=== PATIENT | male | born 1935 | race Caucasian/White ===

== ENCOUNTER 2017-10-13 11:49 | Inpatient (IN) | payer MEDICARE, OTHER ==
[2017-10-13] VITALS (8 sets, daily range): BP systolic 116–162; BP diastolic 56–79; PULSE 68–97; RESP 16–18; TEMP 97.2–98.4; O2SAT 98–100
[2017-10-13 12:20] LABS: AUTOMATED NEUTROPHIL # 10.7 TH/MM3 (1.8-7.7); BASOPHIL # 0.1 TH/MM3 (0-0.2); BASOPHIL % 0.7 % (0.0-2.0); EOSINOPHIL % 0.4 % (0.0-4.0); HEMATOCRIT 41.1 % (39.0-51.0); HEMOGLOBIN 13.8 GM/DL (13.0-17.0); LYMPH % 8.7 % (9.0-44.0); LYMPHOCYTE # 1.1 TH/MM3 (1.0-4.8); MEAN CELL VOLUME 96.4 FL (80.0-100.0); MEAN CORPUSCULAR HEMOGLOBIN 32.4 PG (27.0-34.0); MEAN CORPUSCULAR HGB CONC 33.6 % (32.0-36.0); MEAN PLATELET VOLUME 7.3 FL (7.0-11.0); MONO % 6.3 % (0.0-8.0); MONOCYTE # 0.8 TH/MM3 (0-0.9); NEUT % 83.9 % (16.0-70.0); PLATELET COUNT 487 TH/MM3 (150-450); RED BLOOD COUNT 4.27 MIL/MM3 (4.50-5.90); RED CELL DISTRIBUTION WIDTH 13.8 % (11.6-17.2); WHITE BLOOD COUNT 12.7 TH/MM3 (4.0-11.0)
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
[2017-10-13] MEDS ORDERED: SODIUM CHLORID 0.9% 500 ML INJ 500 ML IV ONE ×2 (12:30→14:30)
[2017-10-13 12:50] LABS: PROTHROMBIN TIME - PATIENT 10.2 SEC (9.8-11.6)
--- NOTE | 2017-10-13 12:58 | RADRPT ---
EXAM DATE/TIME: 10/13/2017 12:48 [facility] COMPARISON: No previous studies available for comparison. INDICATIONS : Syncopal episode. MEDICAL HISTORY : None. SURGICAL HISTORY : None. ENCOUNTER: Initial ACUITY: 1 day PAIN SCORE: Non-responsive. LOCATION: chest FINDINGS: There is a questionable area of increased density in the right upper lung area. This may just be over lapping of the bony structures. However, there no prior studies for comparison. The rest the lungs ar e grossly clear. There are no pleural effusions or pulmonary edema. The heart size is within normal l imits. CONCLUSION: 1. Questionable increased density in the right upper lung area. Recommend a 2 view PA and lateral rubén st x-ray for further evaluation. Robin Young MD on October 13, 2017 at 12:54 Board Certified Radiologist. This report was verified electronically.
[2017-10-13 13:06] LABS: ALBUMIN 2.6 GM/DL (3.4-5.0); AST (GOT) 22 U/L (15-37); BICARBONATE 30.6 MEQ/L (21.0-32.0); BLOOD UREA NITROGEN 30 MG/DL (7-18); CALCIUM 10.1 MG/DL (8.5-10.1); CHLORIDE 101 MEQ/L (98-107); CREATININE 1.44 MG/DL (0.60-1.30); GLOMERULAR FILTRATION RATE 47 ML/MIN (>89); GLUCOSE,RANDOM 93 MG/DL (74-106); SODIUM (NA) 137 MEQ/L (136-145)
[2017-10-13 13:10] LABS: ALKALINE PHOSPHATASE 72 U/L (45-117); ALT (GPT) 40 U/L (12-78); TOTAL BILIRUBIN ADULT 0.6 MG/DL (0.2-1.0); TOTAL PROTEIN 7.7 GM/DL (6.4-8.2)
[2017-10-13 13:10] LABS: TROPONIN I LESS THAN 0.02 NG/ML (0.02-0.05)
[2017-10-13 13:45] LABS: BACTERIA, URINE MANY /hpf; BILIRUBIN, URINE NEG (NEG); BLOOD, URINE SMALL (NEG); GLUCOSE,URINE NEG (NEG); HYALINE CAST, URINE 2 /lpf (RARE); KETONE, URINE NEG (NEG); NITRITE,URINE NEG (NEG); PH, URINE 6.5 (5.0-8.5); URINE COLOR YELLOW (YELLW/STRAW); URINE LEUKOCYTE ESTERASE LARGE (NEG); WHITE BLOOD CELL CLUMPS MANY
[2017-10-13] MEDS ORDERED: IOHEXOL 350 MG/ML 10 ML VIAL (for RAD DIAG) IVCONTRAST ONE (14:10)
--- NOTE | 2017-10-13 14:28 | RADRPT ---
EXAM DATE/TIME: 10/13/2017 13:53 [facility] COMPARISON: No previous studies available for comparison. INDICATIONS : Altered mental status. RADIATION DOSE: 56.35 CTDIvol (mGy) MEDICAL HISTORY : Non-responsive. SURGICAL HISTORY : Non-responsive. ENCOUNTER: Initial ACUITY: 1 day PAIN SCALE: Non-responsive LOCATION: Bilateral head TECHNIQUE: Multiple contiguous axial images were obtained of the head. Using automated exposure control and adj ustment of the mA and/or kV according to patient size, radiation dose was kept as low as reasonably a chievable to obtain optimal diagnostic quality images. DICOM format image data is available electro nically for review and comparison. FINDINGS: CEREBRUM: Moderate diffuse cerebral volume loss. The ventricles are normal for age. No evidence of midline radha ft, mass lesion, hemorrhage or acute infarction. No extra-axial fluid collections are seen. POSTERIOR FOSSA: The cerebellum and brainstem are intact. The 4th ventricle is midline. The cerebellopontine angle i s unremarkable. EXTRACRANIAL: The visualized portion of the orbits is intact. Chronic left frontal sinus changes. Minimal mucoperio steal thickening in the right maxillary sinus. Small metallic fragments in the cheek regions and nasa l septum. SKULL: The calvaria is intact. No evidence of skull fracture. CONCLUSION: 1. No acute intra-animality. 2. Chronic appearing left frontal sinus and mild right maxillary mucosal sinus disease. 3. Small metallic fragments in the facial soft tissues and nasal septum. Boris Roque MD on October 13, 2017 at 14:23 Board Certified Radiologist. This report was verified electronically.
[2017-10-13] MEDS ORDERED: cefTRIAXone INJ 1,000 MG in SODIUM CHLORIDE 0.9% INJ 100 ML IV ONE (14:30)
--- NOTE | 2017-10-13 14:36 | RADRPT ---
EXAM DATE/TIME: 10/13/2017 13:57 [facility] COMPARISON: No previous studies available for comparison. INDICATIONS : Diffuse abdomen pain today. IV CONTRAST: 96 cc Omnipaque 350 (iohexol) IV ORAL CONTRAST: No oral contrast ingested. RADIATION DOSE: 6.97 CTDIvol (mGy) MEDICAL HISTORY : Non-responsive. SURGICAL HISTORY : Non-responsive. ENCOUNTER: Initial ACUITY: 1 day PAIN SCALE: Non-responsive LOCATION: Bilateral abdomen TECHNIQUE: Volumetric scanning of the abdomen and pelvis was performed. Using automated exposure control and ad justment of the mA and/or kV according to patient size, radiation dose was kept as low as reasonably achievable to obtain optimal diagnostic quality images. DICOM format image data is available electro nically for review and comparison. FINDINGS: LOWER LUNGS: The visualized lower lungs are clear. LIVER: Homogeneous density without lesion. There is no dilation of the biliary tree. No calcified gallston es. SPLEEN: Normal size without lesion. PANCREAS: Within normal limits. KIDNEYS: Diffuse cortical thinning in the left kidney particularly in the inferior pole. Small vascular calcif ications. No radiopaque renal calculi. Mild left hydroureteronephrosis. ADRENAL GLANDS: Within normal limits. VASCULAR: Fusiform infrarenal aortic aneurysm measuring up to 2.9 cm in maximum axial dimensions containing sma ll amount of neural thrombus anteriorly. BOWEL/MESENTERY: Mild to moderate sigmoid diverticulosis. There is a 2.8 x 2.9 x 3.0 cm tubular cystic density structu re near the cecum which may reflect a dilated appendix. Bowel otherwise appears grossly unremarkable. ABDOMINAL WALL: Within normal limits. RETROPERITONEUM: There is no lymphadenopathy. BLADDER: Abnormal. There is a an enhancing bladder mass posteriorly measuring 3.5 x 2.7 cm with an adjacent de nsely calcified bladder calculus measuring 1.5 x 1.3 cm. REPRODUCTIVE: Prominent prostate gland. INGUINAL: There is no lymphadenopathy or hernia. MUSCULOSKELETAL: Degenerative spondylosis of the lumbar spine without acute fracture or focal lesion. CONCLUSION: 1. Enhancing posterior bladder mass measuring 2.5 x 2.7 cm consistent with bladder carcinoma. 2. Adjacent densely calcified bladder calculus measuring 1.5 x 1.3 cm. 3. Chronic appearing mild left hydronephrosis with chronic scarring of the left kidney particularly n ear the inferior pole. 4. Tubular cystic density structure measuring up to 3 cm adjacent the cecum likely reflecting a dilat ed appendix. No significant stranding or inflammatory change. 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 5. Infrarenal aortic aneurysm measuring up to 2.9 cm containing small amount of anterior mural thromb us. Boris Roque MD on October 13, 2017 at 14:27 Board Certified Radiologist. This report was verified electronically.
[2017-10-13] MEDS ORDERED: SODIUM CHLORIDE 0.9% FLUSH 10 ML FLUSH IV FLUSH PRN (15:30)
[2017-10-13] MEDS ORDERED: BISACODYL 10 MG SUPP RECTAL PRN (15:30)
[2017-10-13] MEDS ORDERED: LACTULOSE SYRUP 20 GM/30 ML CUP PO PRN (15:30)
[2017-10-13] MEDS ORDERED: SENNOSIDES 8.6 MG TAB PO PRN (15:30)
[2017-10-13] MEDS ORDERED: NALOXONE HCL 0.4 MG/ML AMP IV PUSH PRN (15:30)
[2017-10-13] MEDS ORDERED: MAGNESIUM HYDROXIDE SUSP 30 ML CUP PO PRN (15:30)
[2017-10-13] MEDS ORDERED: ACETAMINOPHEN 325 MG TAB PO PRN (15:30)
[2017-10-13] MEDS ORDERED: cloNIDine HCL 0.1 MG TAB PO PRN (16:15)
--- NOTE | 2017-10-13 16:28 | HHI.HP ---
HPI [facility] Primary Care Physician No Primary Care Physician Admission Diagnosis AMS, bladder mass, weakness, UTI Diagnoses: Chief Complaint: Richey acted, disorientation Travel History International Travel<30 Days: No Contact w/Intl Traveler <30 Da: No Traveled to Known Affected Are: No History of Present Illness This is an 82-year-old male with no known comorbidities, possible COPD, was Richey acted after patient's neighbor/friend called the police department because patient was found to be covered in feces. Per patient's friend, the patient has been declining in the last few weeks, has been having loose stools, coughing, nonproductive and has been more forgetful. He does not know of any medical problems, he is trying to contact the patient's daughter who is incommunicado. Closest family is in [place]. Patient denies any fever, chills, chest pain, shortness of breath, urinary symptoms, abdominal pain or diarrhea. Very poor historian. Review of Systems ROS Limitations: Poor Historian Past Family Social History Past Medical History ? COPD per EMR Cannot be obtained, poor historian Past Surgical History Cannot be obtained, Reported Medications Per friend, allegedly on medication for prostate enlargement but patient is not taking Allergies: Coded Allergies: No Known Drug Allergies (Verified Allergy, Unknown, 10/13/17) Unable to Assess (Verified Allergy, Unknown, 10/13/17) PT STATES HE DOES NOT KNOW Family History Cannot be obtained, per patient, he cannot remember. 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 Social History Allegedly smokes infrequently. Physical Exam Vital Signs Vital Signs Date Time Temp Pulse Resp B/P (MAP) Pulse Ox O2 Delivery O2 Flow Rate FiO2 10/13/17 14:00 82 16 141/64 (89) 99 Room Air 10/13/17 13:00 97 18 116/56 (76) 100 Room Air 10/13/17 11:58 98.4 80 18 162/79 (106) 100 Room Air 10/13/17 11:56 98.4 Physical Exam GENERAL: Not in acute distress, thin patient. HEAD: Atraumatic. Normocephalic. EYES: PERRL, full EOMs, no jaundice, nonicteric, pink conjunctivae without injection, moist mucosa ENT: Nose without bleeding, purulent drainage. Airway patent. NECK: Trachea midline, no mass, no obvious thyromegaly. CARDIOVASCULAR: Regular rate and rhythm without murmurs, gallops, or rubs. RESPIRATORY: Clear to auscultation with normal respiratory effort. Decreased breath sounds symmetrically, occasional rhonchi. GASTROINTESTINAL: Abdomen soft, normal bowel sounds, non-tender, nondistended. MARCIO and exam deferred. MUSCULOSKELETAL: Extremities without clubbing, cyanosis, or edema. NEUROLOGICAL: Awake, alert, oriented to person, place, but not to year. Patient can remember his daughter and friends named. No obvious cranial nerve deficits. Moves all 4 extremities, muscle strength testing 5 over 5. Flat affect. Laboratory Laboratory Tests Test 10/13/17 12:05 10/13/17 12:15 10/13/17 12:25 10/13/17 12:40 White Blood Count 12.7 Red Blood Count 4.27 Hemoglobin 13.8 Hematocrit 41.1 Mean Corpuscular Volume 96.4 Mean Corpuscular Hemoglobin 32.4 Mean Corpuscular Hemoglobin Concent 33.6 Red Cell Distribution Width 13.8 Platelet Count 487 Mean Platelet Volume 7.3 Neutrophils (%) (Auto) 83.9 Lymphocytes (%) (Auto) 8.7 Monocytes (%) (Auto) 6.3 Eosinophils (%) (Auto) 0.4 Basophils (%) (Auto) 0.7 Neutrophils # (Auto) 10.7 Lymphocytes # (Auto) 1.1 Monocytes # (Auto) 0.8 Eosinophils # (Auto) 0.0 Basophils # (Auto) 0.1 CBC Comment DIFF FINAL Differential Comment Blood Urea Nitrogen 30 Creatinine 1.44 Random Glucose 93 Total Protein 7.7 Albumin 2.6 Calcium Level 10.1 Alkaline Phosphatase 72 Aspartate Amino Transf (AST/SGOT) 22 Alanine Aminotransferase (ALT/SGPT) 40 Total Bilirubin 0.6 Sodium Level 137 Potassium Level 4.9 Chloride Level 101 Carbon Dioxide Level 30.6 Anion Gap 5 Estimat Glomerular Filtration Rate 47 Lactic Acid Level 1.2 Prothrombin Time 10.2 Prothromb Time International Ratio 1.0 Activated Partial Thromboplast Time 28.9 Ammonia 26 Total Creatine Kinase 15 Troponin I LESS THAN 0.02 Thyroid Stimulating Hormone 3rd Gen 1.260 Urine Color YELLOW Urine Turbidity HAZY Urine pH 6.5 Urine Specific [place] 1.011 Urine Protein TRACE Urine Glucose (UA) NEG Urine Ketones NEG Urine Occult Blood SMALL Urine Nitrite NEG Urine Bilirubin NEG Urine Urobilinogen LESS THAN 2.0 Urine Leukocyte Esterase LARGE Urine RBC 5 Urine WBC 135 Urine WBC Clumps MANY Urine Bacteria MANY Urine Hyaline Casts 2 Microscopic Urinalysis Comment CATH-CULTURE IND Urine Opiates Screen NEG Urine Barbiturates Screen NEG Urine Amphetamines Screen NEG Urine Benzodiazepines Screen NEG Urine Cocaine Screen NEG Urine Cannabinoids Screen NEG Date/Time Source Procedure Growth Status 10/13/17 12:40 Urine Catheterized Urine Urine Culture Pending Received Result Diagram: 10/13/17 1205 10/13/17 1205 Imaging Last Impressions Chest X-Ray 10/13/17 1214 Signed Impressions: Service Date/Time: Friday, October 13, 2017 12:48 - CONCLUSION: 1. Questionable increased density in the right upper lung area. Recommend a 2 view PA and lateral chest x-ray for further evaluation. Robin Young MD Capjimii VTE Risk Assessment Caprini VTE Risk Assessment: Mod/High Risk (score >= 2) Caprini Risk Assessment Model Point Value = 1 Point Value = 2 Point Value = 3 Point Value = 5 Age 41-60 Minor surgery BMI > 25 kg/m2 Swollen legs Varicose veins or History of unexplained or recurrent spontaneous Oral contraceptives or hormone replacement Sepsis (< 1 month) Serious lung disease, including pneumonia (< 1 month) Abnormal pulmonary function Acute myocardial infarction Congestive heart failure (< 1 month) History of inflammatory bowel disease Medical patient at bed rest Age 61-74 Arthroscopic surgery Major open surgery (> 45 min) Laparoscopic surgery (> 45 min) Malignancy Confined to bed (> 72 hours) Immobilizing plaster cast Central venous access Age >= 75 History of VTE Family history of VTE Factor V Leiden Prothrombin [id number] Lupus anticoagulant Anticardiolipin antibodies Elevated serum homocysteine Heparin-induced thrombocytopenia Other congenital or acquired thrombophilia Stroke (< 1 month) Elective arthroplasty Hip, pelvis, or leg fracture Acute spinal cord injury (< 1 month) Prophylaxis Regimen Total Risk Factor Score Risk Level Prophylaxis Regimen 0-1 Low Early ambulation 2 Moderate Order ONE of the following: *Sequential Compression Device (SCD) *Heparin 5000 units SQ BID 3-4 Higher Order ONE of the following medications: *Heparin 5000 units SQ TID *Enoxaparin/Lovenox 40 mg SQ daily (WT < 150 kg, CrCl > 30 mL/min) *Enoxaparin/Lovenox 30 mg SQ daily (WT < 150 kg, CrCl > 10-29 mL/min) *Enoxaparin/Lovenox 30 mg SQ BID (WT < 150 kg, CrCl > 30 mL/min) AND/OR *Sequential Compression Device (SCD) 5 or more Highest Order ONE of the following medications: *Heparin 5000 units SQ TID (Preferred with Epidurals) *Enoxaparin/Lovenox 40 mg SQ daily (WT < 150 kg, CrCl > 30 mL/min) *Enoxaparin/Lovenox 30 mg SQ daily (WT < 150 kg, CrCl > 10-29 mL/min) *Enoxaparin/Lovenox 30 mg SQ BID (WT < 150 kg, CrCl > 30 mL/min) AND *Sequential Compression Device (SCD) Assessment and Plan Problem List: (1) UTI (urinary tract infection) ICD Code: N39.0 - Urinary tract infection, site not specified Status: Acute (2) Bladder mass ICD Code: N32.89 - Other specified disorders of bladder Status: Acute Assessment and Plan This is an 82-year-old male with no known comorbidities but very poor historian , presenting as a Richey act, found to have possible UTI and bladder mass Altered mental status-could be beginning dementia, also could be toxic metabolic encephalopathy from UTI, monitor. Urinary tract infection-urinalysis suspicious for infection, (+) leukocytosis, follow-up urine culture, and start ceftriaxone, recheck CBC tomorrow. Bladder mass- CT scan of the abdomen/pelvis reviewed, bladder mass 2.5 x 2.7 cm , suspicious for bladder cancer, patient is a retired colonel, there is also evidence of mild left hydronephrosis, consult urology Infrarenal aortic aneurysm- 2.9 cm, with small amount of anterior mural thrombus, consult vascular surgery Hypertension-start Norvasc, clonidine as needed Acute versus chronic kidney disease- ? , No previous labs to compare with, start IVF. Urinalysis only has trace proteinuria. Follow BMP. Diarrhea-check C. difficile, ova and parasites. IVF as above, doubt C diff DVT prophylaxis: Heparin Case management consult, will likely need SNF for long-term care placement. Discussed Condition With Patient's friend Michela Physician Certification 2 Midnight Certification Type: Admission for Inpatient Services Order for Inpatient Services The services are ordered in accordance with Medicare regulations or non- Medicare payer requirements, as applicable. In the case of services not specified as inpatient-only, they are appropriately provided as inpatient services in accordance with the 2-midnight benchmark. Estimated LOS (days): 3 days is the estimated time the patient will need to remain in the hospital, assuming treatment plan goals are met and no additional complications. Post-Hospital Plan: SNF Problem Qualifiers (1) UTI (urinary tract infection): Qualified Codes: N30.00 - Acute cystitis without hematuria Augustin Goss MD Oct 13, 2017 16:27
--- NOTE | 2017-10-13 16:43 | PD ---
Data Data Last Documented VS Vital Signs Date Time Temp Pulse Resp B/P (MAP) Pulse Ox O2 Delivery O2 Flow Rate FiO2 10/13/17 14:00 82 16 141/64 (89) 99 Room Air 10/13/17 11:58 98.4 Orders Orders Complete Blood Count With Diff (10/13/17 12:02) Comprehensive Metabolic Panel (10/13/17 12:02) Urinalysis - C+S If Indicated (10/13/17 12:02) Lactic Acid (10/13/17 12:02) Ct Brain W/O Iv Contrast(Rout) (10/13/17 ) Electrocardiogram (10/13/17 12:14) Ammonia (10/13/17 12:14) Creatine Kinase (Cpk) (10/13/17 12:14) Prothrombin Time / Inr (Pt) (10/13/17 12:14) Act Partial Throm Time (Ptt) (10/13/17 12:14) Troponin I (10/13/17 12:14) Thyroid Stimulating Hormone (10/13/17 12:14) Chest, Single Ap (10/13/17 12:14) Blood Glucose (10/13/17 12:14) Ecg Monitoring (10/13/17 12:14) Iv Access Insert/Monitor (10/13/17 12:14) Cath For Specimen (10/13/17 12:14) Oximetry (10/13/17 12:14) Drug Screen, Random Urine (10/13/17 12:14) Sodium Chlorid 0.9% 500 Ml Inj (Ns 500 M (10/13/17 12:30) Ct Abd/Pel W Iv Contrast(Rout) (10/13/17 ) Urine Culture (10/13/17 12:40) Iohexol 350 Inj (Omnipaque 350 Inj) (10/13/17 14:10) Sodium Chlorid 0.9% 500 Ml Inj (Ns 500 M (10/13/17 14:30) Ceftriaxone Inj (Rocephin Inj) (10/13/17 14:30) Admit Order (Ed Use Only) (10/13/17 15:21) Admit To Inpatient (10/13/17 ) Vital Signs (Adult) Q4H (10/13/17 15:19) Activity Bed Rest (10/13/17 15:19) Intake + Output ROGELIO.QSHIFT (10/13/17 15:19) Diet Heart Healthy (10/13/17 Dinner) Sodium Chlor 0.9% 1000 Ml Inj (Ns 1000 M (10/13/17 15:19) Sodium Chloride 0.9% Flush (Ns Flush) (10/13/17 15:30) Sodium Chloride 0.9% Flush (Ns Flush) (10/13/17 21:00) Acetaminophen (Tylenol) (10/13/17 15:30) Basic Metabolic Panel (Bmp) (10/14/17 06:00) Complete Blood Count With Diff (10/14/17 06:00) Creatine Kinase (Cpk) (10/13/17 15:19) Hepatic Functional Panel (10/14/17 06:00) Resp Oxygen Donald C Titrat 1-4 L (10/13/17 ) Pt Request For Service (10/13/17 15:19) Heparin Inj (Heparin Inj) (10/13/17 16:00) Naloxone Inj (Narcan Inj) (10/13/17 15:30) Docusate Sodium-Senna (Fauzia-Colace) (10/13/17 21:00) Magnesium Hydroxide Liq (Milk Of Magnesi (10/13/17 15:30) Sennosides (Senokot) (10/13/17 15:30) Bisacodyl Supp (Dulcolax Supp) (10/13/17 15:30) Lactulose Liq (Lactulose Liq) (10/13/17 15:30) Labs Laboratory Tests Test 10/13/17 12:05 10/13/17 12:15 10/13/17 12:25 10/13/17 12:40 White Blood Count 12.7 TH/MM3 Red Blood Count 4.27 MIL/MM3 Hemoglobin 13.8 GM/DL Hematocrit 41.1 % Mean Corpuscular Volume 96.4 FL Mean Corpuscular Hemoglobin 32.4 PG Mean Corpuscular Hemoglobin Concent 33.6 % Red Cell Distribution Width 13.8 % Platelet Count 487 TH/MM3 Mean Platelet Volume 7.3 FL Neutrophils (%) (Auto) 83.9 % Lymphocytes (%) (Auto) 8.7 % Monocytes (%) (Auto) 6.3 % Eosinophils (%) (Auto) 0.4 % Basophils (%) (Auto) 0.7 % Neutrophils # (Auto) 10.7 TH/MM3 Lymphocytes # (Auto) 1.1 TH/MM3 Monocytes # (Auto) 0.8 TH/MM3 Eosinophils # (Auto) 0.0 TH/MM3 Basophils # (Auto) 0.1 TH/MM3 CBC Comment DIFF FINAL Differential Comment Blood Urea Nitrogen 30 MG/DL Creatinine 1.44 MG/DL Random Glucose 93 MG/DL Total Protein 7.7 GM/DL Albumin 2.6 GM/DL Calcium Level 10.1 MG/DL Alkaline Phosphatase 72 U/L Aspartate Amino Transf (AST/SGOT) 22 U/L Alanine Aminotransferase (ALT/SGPT) 40 U/L Total Bilirubin 0.6 MG/DL Sodium Level 137 MEQ/L Potassium Level 4.9 MEQ/L Chloride Level 101 MEQ/L Carbon Dioxide Level 30.6 MEQ/L Anion Gap 5 MEQ/L Estimat Glomerular Filtration Rate 47 ML/MIN Lactic Acid Level 1.2 mmol/L Prothrombin Time 10.2 SEC Prothromb Time International Ratio 1.0 RATIO Activated Partial Thromboplast Time 28.9 SEC Ammonia 26 MCMOL/L Total Creatine Kinase 15 U/L Troponin I LESS THAN 0.02 NG/ML Thyroid Stimulating Hormone 3rd Gen 1.260 uIU/ML Urine Color YELLOW Urine Turbidity HAZY Urine pH 6.5 Urine Specific [place] 1.011 Urine Protein TRACE mg/dL Urine Glucose (UA) NEG mg/dL Urine Ketones NEG mg/dL Urine Occult Blood SMALL Urine Nitrite NEG Urine Bilirubin NEG Urine Urobilinogen LESS THAN 2.0 MG/DL Urine Leukocyte Esterase LARGE Urine RBC 5 /hpf Urine WBC 135 /hpf Urine WBC Clumps MANY Urine Bacteria MANY /hpf Urine Hyaline Casts 2 /lpf Microscopic Urinalysis Comment CATH-CULTURE IND Urine Opiates Screen NEG Urine Barbiturates Screen NEG Urine Amphetamines Screen NEG Urine Benzodiazepines Screen NEG Urine Cocaine Screen NEG Urine Cannabinoids Screen NEG MDM Medical Record Reviewed: Yes Supervised Visit with HELEN: Yes Narrative Course Please refer to mid-level note. CBC & BMP Diagram 10/13/17 12:05 Total Protein 7.7, Albumin 2.6 L, Calcium Level 10.1, Alkaline Phosphatase 72, Aspartate Amino Transf (AST/SGOT) 22, Alanine Aminotransferase (ALT/SGPT) 40, Total Bilirubin 0.6 Patient will be admitted for IV antibiotics and ongoing monitoring. Please refer to the mid-level note. I saw and evaluated the patient at the bedside and agree with the plan. Diagnosis Primary Impression: UTI (urinary tract infection) Qualified Codes: N30.00 - Acute cystitis without hematuria Additional Impressions: Aortic aneurysm Qualified Codes: I71.4 - Abdominal aortic aneurysm, without rupture Weakness Bladder mass Admitting Information Admitting Physician Requests: Admit Scripts Unable to Obtain Active Prescriptions or Reported Meds Nic Auguste MD Oct 13, 2017 16:43
[2017-10-13] MEDS: amLODIPine BESYLATE 5 MG TAB PO SCH (17:16)
[2017-10-13] MEDS: HEPARIN SODIUM - SQ 10,000 UNITS/ML VIAL SQ SCH (17:16)
[2017-10-13] MEDS: SODIUM CHLOR 0.9% 1000 ML INJ 1,000 ML IV SCH (17:17)
[2017-10-13] MEDS ORDERED: LORazepam 2 MG/ML VIAL IV PUSH ONE (20:00)
[2017-10-13] MEDS: SODIUM CHLORIDE 0.9% FLUSH 10 ML FLUSH IV FLUSH SCH (20:04)
[2017-10-13] MEDS: DOCUSATE SODIUM 50 MG/SENNA 8.6 MG TAB PO SCH (20:04)
--- NOTE | 2017-10-13 20:36 | RADRPT ---
EXAM DATE/TIME: 10/13/2017 20:23 [facility] COMPARISON: CHEST SINGLE AP, October 13, 2017, 12:48. INDICATIONS : Follow up abnormal chest x-ray. RADIATION DOSE: 9.23 CTDIvol (mGy) MEDICAL HISTORY : None SURGICAL HISTORY : None. ENCOUNTER: Subsequent ACUITY: 1 day PAIN SCALE: Non-responsive LOCATION: chest TECHNIQUE: Volumetric scanning of the chest was performed. Using automated exposure control and adjustment of t he mA and/or kV according to patient size, radiation dose was kept as low as reasonably achievable to obtain optimal diagnostic quality images. DICOM format image data is available electronically for r eview and comparison. Follow-up recommendations for detected pulmonary nodules are based at a minimum on nodule size and pa tient risk factors according to Fleischner Society Guidelines. FINDINGS: LUNGS: There is mild centrilobular emphysema. Mild symmetric biapical scar is present. No effusion, consolid ation, or pneumothorax is present. No concerning pulmonary nodule is seen. PLEURAE: No pleural effusion. There is mild pleural thickening in the posterior mid right hemithorax. MEDIASTINUM: The heart and great vessels demonstrate no acute abnormality. There is severe atherosclerotic diseas e of the aorta and coronary artery calcification. There is no mediastinal or hilar lymphadenopathy. AXILLAE: Within normal limits. No lymphadenopathy. MUSCULOSKELETAL: Degenerative changes of the thoracic spine. No lytic or blastic lesion is seen. MISCELLANEOUS: A small hiatal hernia is present. CONCLUSION: 1. No acute pulmonary abnormality is identified. There is mild centrilobular emphysema with mild biap ical scar. No concerning pulmonary nodule is seen. 2. Severe atherosclerotic disease. Bryan Hobson MD on October 13, 2017 at 20:31 Board Certified Radiologist. This report was verified electronically.
[2017-10-14] VITALS (13 sets, daily range): BP systolic 108–138; BP diastolic 55–88; PULSE 69–100; RESP 18–19; TEMP 97.2–98.9; O2SAT 94–100
[2017-10-14] MEDS: SODIUM CHLOR 0.9% 1000 ML INJ 1,000 ML IV SCH ×3 (02:05→22:53)
[2017-10-14] MEDS: HEPARIN SODIUM - SQ 10,000 UNITS/ML VIAL SQ SCH ×2 (04:28→14:51)
[2017-10-14] MEDS: DOCUSATE SODIUM 50 MG/SENNA 8.6 MG TAB PO SCH ×2 (08:06→20:19)
[2017-10-14] MEDS: amLODIPine BESYLATE 5 MG TAB PO SCH (08:07)
[2017-10-14] MEDS: SODIUM CHLORIDE 0.9% FLUSH 10 ML FLUSH IV FLUSH SCH ×2 (08:08→20:19)
--- NOTE | 2017-10-14 09:17 | HHI.PR ---
Subjective Remarks Patient complains of being cold. He states he needs to urinate. States he is planning on the right eye but if he is on the left. Not interested in eating breakfast. Pleasantly confused. Does not speak much to me Objective Vitals Vital Signs Date Time Temp Pulse Resp B/P (MAP) Pulse Ox O2 Delivery O2 Flow Rate FiO2 10/14/17 07:37 98 10/14/17 07:35 98.2 89 18 136/74 (94) 94 10/14/17 04:54 97.2 100 18 115/57 (76) 100 10/14/17 00:58 97.5 92 19 138/60 (86) 99 10/14/17 00:04 73 10/13/17 20:59 98.1 77 18 132/58 (82) 100 10/13/17 20:00 68 10/13/17 18:26 89 10/13/17 17:22 97.2 82 18 127/60 (82) 98 10/13/17 16:59 10/13/17 14:00 82 16 141/64 (89) 99 Room Air 10/13/17 13:00 97 18 116/56 (76) 100 Room Air 10/13/17 11:58 98.4 80 18 162/79 (106) 100 Room Air 10/13/17 11:56 98.4 I/O 10/13/17 10/13/17 10/13/17 10/14/17 10/14/17 10/14/17 07:00 15:00 23:00 07:00 15:00 23:00 Intake Total 500 ml 600 ml 995 ml Balance 500 ml 600 ml 995 ml Intake IV Total 500 ml 600 ml 995 ml # Voids 1 1 1 # Bowel Movements 1 Result Diagram: 10/13/17 1205 10/13/17 1205 Imaging Last Impressions Chest X-Ray 10/13/17 1214 Signed Impressions: Service Date/Time: Friday, October 13, 2017 12:48 - CONCLUSION: 1. Questionable increased density in the right upper lung area. Recommend a 2 view PA and lateral chest x-ray for further evaluation. Robin Young MD Head CT 10/13/17 0000 Signed Impressions: Service Date/Time: Friday, October 13, 2017 13:53 - CONCLUSION: 1. No acute intra-animality. 2. Chronic appearing left frontal sinus and mild right maxillary mucosal sinus disease. 3. Small metallic fragments in the facial soft tissues and nasal septum. Boris Roque MD Chest CT 10/13/17 0000 Signed Impressions: Service Date/Time: Friday, October 13, 2017 20:23 - CONCLUSION: 1. No acute pulmonary abnormality is identified. There is mild centrilobular emphysema with mild biapical scar. No concerning pulmonary nodule is seen. 2. Severe atherosclerotic disease. Bryan Hobson MD Abdomen/Pelvis CT 10/13/17 0000 Signed Impressions: Service Date/Time: Friday, October 13, 2017 13:57 - CONCLUSION: 1. Enhancing posterior bladder mass measuring 2.5 x 2.7 cm consistent with bladder carcinoma. 2. Adjacent densely calcified bladder calculus measuring 1.5 x 1.3 cm. 3. Chronic appearing mild left hydronephrosis with chronic scarring of the left kidney particularly near the inferior pole. 4. Tubular cystic density structure measuring up to 3 cm adjacent the cecum likely reflecting a dilated appendix. No significant stranding or inflammatory change. 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 5. Infrarenal aortic aneurysm measuring up to 2.9 cm containing small amount of anterior mural thrombus. Boris Roque MD Objective Remarks GENERAL: Laying in bed. Thin patient. HEAD: Atraumatic. Normocephalic. EYES: some dry secretions noted on the right eyelids, right w no injection. No secretion note on the left. ENT: Airway patent. Mucous membranes do appear dry NECK: Trachea midline CARDIOVASCULAR: Regular rate and rhythm without murmurs RESPIRATORY: Clear to auscultation with normal respiratory effort. Decreased breath sounds symmetrically GASTROINTESTINAL: Abdomen soft, normal bowel sounds, some discomfort to deep palpation in the suprapubic area MUSCULOSKELETAL: Extremities without edema. moves around in bed, trying to find a comfortable spot and trying to pull covers on himself. NEUROLOGICAL: Moves all 4 extremities, flat affect. answers w yes or no but at times mumbles he is cold A/P Problem List: (1) UTI (urinary tract infection) ICD Code: N39.0 - Urinary tract infection, site not specified Status: Acute (2) Bladder mass ICD Code: N32.89 - Other specified disorders of bladder Status: Acute Assessment and Plan This is an 82-year-old male with no known comorbidities but very poor historian , presenting as a Richey act, found to have possible UTI and bladder mass and aortic aneurysm Altered mental status-could be beginning dementia, also could be toxic metabolic encephalopathy from UTI, monitor. 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 Infrarenal aortic aneurysm- 2.9 cm, with small amount of anterior mural thrombus, vascular surgery has been consult Hypertension-on Norvasc, clonidine as needed Acute versus chronic kidney disease- ? , No previous labs to compare with, continue IVF. Urinalysis only has trace proteinuria. Follow BMP. Diarrhea-check C. difficile neg, ova and parasites pending. DVT prophylaxis: Heparin Case management consult, will likely need SNF for long-term care placement. Patient was admitted under Richey act, I have consulted psychiatry for further recommendations. From the ER documentation, patient's POA and was yesterday. I have consulted palliative care for assistance with goals of care. Discharge Planning Pt under backer Act and psych consult in place Awaiting recs from urology and [facility] sx Palliative care consult placed for assistance w goals of care. Problem Qualifiers (1) UTI (urinary tract infection): Qualified Codes: N30.00 - Acute cystitis without hematuria Laura Arevalo MD Oct 14, 2017 09:17
[2017-10-14 10:50] LABS: AUTOMATED NEUTROPHIL # 9.6 TH/MM3 (1.8-7.7); BASOPHIL # 0.1 TH/MM3 (0-0.2); BASOPHIL % 0.6 % (0.0-2.0); EOSINOPHIL % 0.3 % (0.0-4.0); HEMATOCRIT 40.3 % (39.0-51.0); HEMOGLOBIN 13.4 GM/DL (13.0-17.0); LYMPH % 10.7 % (9.0-44.0); LYMPHOCYTE # 1.2 TH/MM3 (1.0-4.8); MEAN CELL VOLUME 96.9 FL (80.0-100.0); MEAN CORPUSCULAR HEMOGLOBIN 32.1 PG (27.0-34.0); MEAN CORPUSCULAR HGB CONC 33.1 % (32.0-36.0); MEAN PLATELET VOLUME 7.9 FL (7.0-11.0); MONO % 3.7 % (0.0-8.0); MONOCYTE # 0.4 TH/MM3 (0-0.9); NEUT % 84.7 % (16.0-70.0); PLATELET COUNT 484 TH/MM3 (150-450); RED BLOOD COUNT 4.16 MIL/MM3 (4.50-5.90); RED CELL DISTRIBUTION WIDTH 13.8 % (11.6-17.2); WHITE BLOOD COUNT 11.4 TH/MM3 (4.0-11.0)
[2017-10-14 11:25] LABS: ALBUMIN 2.5 GM/DL (3.4-5.0); BICARBONATE 27.5 MEQ/L (21.0-32.0); CALCIUM 9.7 MG/DL (8.5-10.1); CREATININE 1.37 MG/DL (0.60-1.30); DIRECT BILIRUBIN ADULT 0.1 MG/DL (0.0-0.2); INDIRECT BILIRUBIN 0.4 MG/DL (0.0-0.8); TOTAL BILIRUBIN ADULT 0.5 MG/DL (0.2-1.0)
--- NOTE | 2017-10-14 11:35 | PD.CONS ---
[facility] Service Urology Consult Requested By Dr. Goss Reason for Consult Rule out bladder mass Primary Care Physician No Primary Care Physician Diagnosis: (1) UTI (urinary tract infection) ICD Code: N39.0 - Urinary tract infection, site not specified (2) Bladder mass ICD Code: N32.89 - Other specified disorders of bladder History of Present Illness 82-year-old gentleman with questionable history COPD who is presently admitted under the Richey act after being found by a neighbor at home covered in feces. Unable to elicit any significant history from this patient as he is a very poor historian. During present hospitalization a CT scan of the abdomen and pelvis was performed that demonstrated a 2.7 cm mass lesion within the inferior portion of the bladder suspicious for bladder tumor formation. Other findings included a bladder calculus and mild hydronephrosis of the left kidney with atrophic changes and scarring of likely chronic nature. A urology consult was placed to address these CT scan findings. I reviewed the actual CT scan images and it appears that the bladder mass is actually secondary to prostatic enlargement extending into the inferior portion of the bladder. Upon questioning the patient, he denies voiding complaints although the nurse taking care of him informed me that he is voiding small amounts at a time and has had some incontinence. Review of Systems ROS Limitations: Poor Historian Except as stated in HPI: all other systems reviewed are Neg Past Family Social History Past Medical History Unable to obtain Past Surgical History Unable to obtain Reported Medications Unable to obtain Allergies: Coded Allergies: No Known Drug Allergies (Verified Allergy, Unknown, 10/13/17) Unable to Assess (Verified Allergy, Unknown, 10/13/17) PT STATES HE DOES NOT KNOW Active Ordered Medications Refer to EMR Family History Unable to obtain Social History Unable to obtain Physical Exam Vital Signs Date Time Temp Pulse Resp B/P (MAP) Pulse Ox O2 Delivery O2 Flow Rate FiO2 10/14/17 09:10 71 10/14/17 07:37 98 10/14/17 07:35 98.2 89 18 136/74 (94) 94 10/14/17 04:54 97.2 100 18 115/57 (76) 100 10/14/17 00:58 97.5 92 19 138/60 (86) 99 10/14/17 00:04 73 10/13/17 20:59 98.1 77 18 132/58 (82) 100 10/13/17 20:00 68 10/13/17 18:26 89 10/13/17 17:22 97.2 82 18 127/60 (82) 98 10/13/17 16:59 10/13/17 14:00 82 16 141/64 (89) 99 Room Air 10/13/17 13:00 97 18 116/56 (76) 100 Room Air 10/13/17 11:58 98.4 80 18 162/79 (106) 100 Room Air 10/13/17 11:56 98.4 Physical Exam GENERAL: Elderly male in no apparent distress SKIN: No rashes, ecchymoses or lesions. Cool and dry. HEAD: Atraumatic. Normocephalic. No temporal or scalp tenderness. EYES: Pupils equal round and reactive. Extraocular motions intact. No scleral icterus. No injection or drainage. ENT: Nose without bleeding, purulent drainage or septal hematoma. Throat without erythema, tonsillar hypertrophy or exudate. Uvula midline. Airway patent. NECK: Trachea midline. No JVD or lymphadenopathy. Supple, nontender, no meningeal signs. GASTROINTESTINAL: Abdomen soft, non-tender, nondistended. No guarding. GENITOURINARY: No CVA tenderness, bladder not overly distended. MUSCULOSKELETAL: Extremities without clubbing, cyanosis, or edema. No joint tenderness, effusion, or edema noted. No calf tenderness. Negative Homans sign bilaterally. NEUROLOGICAL: Normal speech, poor historian. Lab results reviewed: Yes Laboratory Tests Test 10/13/17 12:05 10/13/17 12:15 10/13/17 12:25 10/13/17 12:40 White Blood Count 12.7 Red Blood Count 4.27 Hemoglobin 13.8 Hematocrit 41.1 Mean Corpuscular Volume 96.4 Mean Corpuscular Hemoglobin 32.4 Mean Corpuscular Hemoglobin Concent 33.6 Red Cell Distribution Width 13.8 Platelet Count 487 Mean Platelet Volume 7.3 Neutrophils (%) (Auto) 83.9 Lymphocytes (%) (Auto) 8.7 Monocytes (%) (Auto) 6.3 Eosinophils (%) (Auto) 0.4 Basophils (%) (Auto) 0.7 Neutrophils # (Auto) 10.7 Lymphocytes # (Auto) 1.1 Monocytes # (Auto) 0.8 Eosinophils # (Auto) 0.0 Basophils # (Auto) 0.1 CBC Comment DIFF FINAL Differential Comment Blood Urea Nitrogen 30 Creatinine 1.44 Random Glucose 93 Total Protein 7.7 Albumin 2.6 Calcium Level 10.1 Alkaline Phosphatase 72 Aspartate Amino Transf (AST/SGOT) 22 Alanine Aminotransferase (ALT/SGPT) 40 Total Bilirubin 0.6 Sodium Level 137 Potassium Level 4.9 Chloride Level 101 Carbon Dioxide Level 30.6 Anion Gap 5 Estimat Glomerular Filtration Rate 47 Lactic Acid Level 1.2 Prothrombin Time 10.2 Prothromb Time International Ratio 1.0 Activated Partial Thromboplast Time 28.9 Ammonia 26 Total Creatine Kinase 15 Troponin I LESS THAN 0.02 Thyroid Stimulating Hormone 3rd Gen 1.260 Urine Color YELLOW Urine Turbidity HAZY Urine pH 6.5 Urine Specific [place] 1.011 Urine Protein TRACE Urine Glucose (UA) NEG Urine Ketones NEG Urine Occult Blood SMALL Urine Nitrite NEG Urine Bilirubin NEG Urine Urobilinogen LESS THAN 2.0 Urine Leukocyte Esterase LARGE Urine RBC 5 Urine WBC 135 Urine WBC Clumps MANY Urine Bacteria MANY Urine Hyaline Casts 2 Microscopic Urinalysis Comment CATH-CULTURE IND Urine Opiates Screen NEG Urine Barbiturates Screen NEG Urine Amphetamines Screen NEG Urine Benzodiazepines Screen NEG Urine Cocaine Screen NEG Urine Cannabinoids Screen NEG Test 10/13/17 22:38 10/13/17 23:50 10/14/17 09:55 Total Creatine Kinase 23 Stool C. difficile Toxin (PCR) NEGATIVE Stl C. difficile Toxin Epiderm 027 PRESUMPTIVE NEGATIVE White Blood Count 11.4 Red Blood Count 4.16 Hemoglobin 13.4 Hematocrit 40.3 Mean Corpuscular Volume 96.9 Mean Corpuscular Hemoglobin 32.1 Mean Corpuscular Hemoglobin Concent 33.1 Red Cell Distribution Width 13.8 Platelet Count 484 Mean Platelet Volume 7.9 Neutrophils (%) (Auto) 84.7 Lymphocytes (%) (Auto) 10.7 Monocytes (%) (Auto) 3.7 Eosinophils (%) (Auto) 0.3 Basophils (%) (Auto) 0.6 Neutrophils # (Auto) 9.6 Lymphocytes # (Auto) 1.2 Monocytes # (Auto) 0.4 Eosinophils # (Auto) 0.0 Basophils # (Auto) 0.1 CBC Comment DIFF FINAL Differential Comment Blood Urea Nitrogen 24 Creatinine 1.37 Random Glucose 109 Total Protein 7.0 Albumin 2.5 Calcium Level 9.7 Alkaline Phosphatase 71 Aspartate Amino Transf (AST/SGOT) 10 Alanine Aminotransferase (ALT/SGPT) 26 Total Bilirubin 0.5 Direct Bilirubin 0.1 Sodium Level 142 Potassium Level 4.0 Chloride Level 106 Carbon Dioxide Level 27.5 Anion Gap 9 Estimat Glomerular Filtration Rate 50 Indirect Bilirubin 0.4 Date/Time Source Procedure Growth Status 10/13/17 23:50 Stool Stool Stool Pus (DAVID) - Final RARE WBC Complete 10/13/17 23:50 Stool Stool Stool Occult Blood (DAVID) - Final HEMOCCULT NEGATIVE Complete 10/13/17 12:40 Urine Catheterized Urine Urine Culture Pending Received Result Diagram: 10/14/17 0955 10/14/17 0955 Personally reviewed images: Yes Imaging Last Impressions Chest X-Ray 10/13/17 1214 Signed Impressions: Service Date/Time: Friday, October 13, 2017 12:48 - CONCLUSION: 1. Questionable increased density in the right upper lung area. Recommend a 2 view PA and lateral chest x-ray for further evaluation. Robin Young MD Head CT 10/13/17 0000 Signed Impressions: Service Date/Time: Friday, October 13, 2017 13:53 - CONCLUSION: 1. No acute intra-animality. 2. Chronic appearing left frontal sinus and mild right maxillary mucosal sinus disease. 3. Small metallic fragments in the facial soft tissues and nasal septum. Boris Roque MD Chest CT 10/13/17 0000 Signed Impressions: Service Date/Time: Friday, October 13, 2017 20:23 - CONCLUSION: 1. No acute pulmonary abnormality is identified. There is mild centrilobular emphysema with mild biapical scar. No concerning pulmonary nodule is seen. 2. Severe atherosclerotic disease. Bryan Hobson MD Abdomen/Pelvis CT 10/13/17 0000 Signed Impressions: Service Date/Time: Friday, October 13, 2017 13:57 - CONCLUSION: 1. Enhancing posterior bladder mass measuring 2.5 x 2.7 cm consistent with bladder carcinoma. 2. Adjacent densely calcified bladder calculus measuring 1.5 x 1.3 cm. 3. Chronic appearing mild left hydronephrosis with chronic scarring of the left kidney particularly near the inferior pole. 4. Tubular cystic density structure measuring up to 3 cm adjacent the cecum likely reflecting a dilated appendix. No significant stranding or inflammatory change. 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 5. Infrarenal aortic aneurysm measuring up to 2.9 cm containing small amount of anterior mural thrombus. Boris Roque MD Assessment and Plan Assessment and Plan Urologic impression: 1. Mass lesion seen on CT scan likely originating from the prostate 2. Bladder calculus 3. Mild left hydronephrosis with atrophic changes to left kidney and scarring likely of a chronic nature Recommendations: 1. We will check a postvoid residual via bladder scan and if greater than [address] a Payne catheter 2. Office follow-up within 2 weeks after hospital discharge to proceed with outpatient workup to include cystoscopy. 3. Will be available as needed during present hospitalization. Problem Qualifiers (1) UTI (urinary tract infection): Qualified Codes: N30.00 - Acute cystitis without hematuria Rustam Dietrich MD Oct 14, 2017 11:35
--- NOTE | 2017-10-14 13:01 | PD.VS.CON ---
History of Present Illness Chief Complaint: AAA Consult Requested by: Medical service History of Present Illness 82 yo male with dementia who was admitted yesterday to hospital, getting medical work-up. CT showed incidental 2.9 cm AAA, intact. Unknown medical history. Patient is pleasant but demented. Does not know about AAA prior to our discussion. He is accompanied by a neighbor who apparently takes care of him. Past/Family/Social History Past Medical History unknown Past Surgical History unknown Social History retired from [employer] [place] years Family History unknown but according to neighbor, there are 3 children and several step- children. Home Medications Unable to Obtain Active Prescriptions or Reported Meds Coded Allergies: No Known Drug Allergies (Verified Allergy, Unknown, 10/13/17) Unable to Assess (Verified Allergy, Unknown, 10/13/17) PT STATES HE DOES NOT KNOW Review of Systems ROS Limitations: Altered Mental Status Physical Exam Vitals/I&O Date Time Temp Pulse Resp B/P (MAP) Pulse Ox O2 Delivery O2 Flow Rate FiO2 10/14/17 11:50 98.4 79 18 116/55 (75) 99 10/14/17 09:10 71 10/14/17 07:37 98 10/14/17 07:35 98.2 89 18 136/74 (94) 94 10/14/17 04:54 97.2 100 18 115/57 (76) 100 10/14/17 00:58 97.5 92 19 138/60 (86) 99 10/14/17 00:04 73 10/13/17 20:59 98.1 77 18 132/58 (82) 100 10/13/17 20:00 68 10/13/17 18:26 89 10/13/17 17:22 97.2 82 18 127/60 (82) 98 10/13/17 16:59 10/13/17 14:00 82 16 141/64 (89) 99 Room Air 10/13/17 13:00 97 18 116/56 (76) 100 Room Air 10/14/17 10/14/17 10/14/17 07:00 15:00 23:00 Intake Total 995 ml 1000 ml Balance 995 ml 1000 ml Neuro: SCHROEDER HEENT: no scleral icterus Neck: no JVD Heart: reg rate Lungs: nonlabored breathing Abdomen: nontender Laboratory Tests Test 10/13/17 22:38 10/13/17 23:50 10/14/17 09:55 Total Creatine Kinase 23 Stool C. difficile Toxin (PCR) NEGATIVE Stl C. difficile Toxin Epiderm 027 PRESUMPTIVE NEGATIVE White Blood Count 11.4 Red Blood Count 4.16 Hemoglobin 13.4 Hematocrit 40.3 Mean Corpuscular Volume 96.9 Mean Corpuscular Hemoglobin 32.1 Mean Corpuscular Hemoglobin Concent 33.1 Red Cell Distribution Width 13.8 Platelet Count 484 Mean Platelet Volume 7.9 Neutrophils (%) (Auto) 84.7 Lymphocytes (%) (Auto) 10.7 Monocytes (%) (Auto) 3.7 Eosinophils (%) (Auto) 0.3 Basophils (%) (Auto) 0.6 Neutrophils # (Auto) 9.6 Lymphocytes # (Auto) 1.2 Monocytes # (Auto) 0.4 Eosinophils # (Auto) 0.0 Basophils # (Auto) 0.1 CBC Comment DIFF FINAL Differential Comment Blood Urea Nitrogen 24 Creatinine 1.37 Random Glucose 109 Total Protein 7.0 Albumin 2.5 Calcium Level 9.7 Alkaline Phosphatase 71 Aspartate Amino Transf (AST/SGOT) 10 Alanine Aminotransferase (ALT/SGPT) 26 Total Bilirubin 0.5 Direct Bilirubin 0.1 Sodium Level 142 Potassium Level 4.0 Chloride Level 106 Carbon Dioxide Level 27.5 Anion Gap 9 Estimat Glomerular Filtration Rate 50 Indirect Bilirubin 0.4 Date/Time Source Procedure Growth Status 10/13/17 23:50 Stool Stool Stool Pus (DAVID) - Final RARE WBC Complete 10/13/17 23:50 Stool Stool Stool Occult Blood (DAVID) - Final HEMOCCULT NEGATIVE Complete 10/13/17 12:40 Urine Catheterized Urine Urine Culture - Preliminary Gram Negative Panda Resulted Last 48 hours Impressions Chest X-Ray 10/13/17 1214 Signed Impressions: Service Date/Time: Friday, October 13, 2017 12:48 - CONCLUSION: 1. Questionable increased density in the right upper lung area. Recommend a 2 view PA and lateral chest x-ray for further evaluation. Robin Young MD Head CT 10/13/17 0000 Signed Impressions: Service Date/Time: Friday, October 13, 2017 13:53 - CONCLUSION: 1. No acute intra-animality. 2. Chronic appearing left frontal sinus and mild right maxillary mucosal sinus disease. 3. Small metallic fragments in the facial soft tissues and nasal septum. Boris Roque MD Chest CT 10/13/17 0000 Signed Impressions: Service Date/Time: Friday, October 13, 2017 20:23 - CONCLUSION: 1. No acute pulmonary abnormality is identified. There is mild centrilobular emphysema with mild biapical scar. No concerning pulmonary nodule is seen. 2. Severe atherosclerotic disease. Bryan Hobson MD Abdomen/Pelvis CT 10/13/17 0000 Signed Impressions: Service Date/Time: Friday, October 13, 2017 13:57 - CONCLUSION: 1. Enhancing posterior bladder mass measuring 2.5 x 2.7 cm consistent with bladder carcinoma. 2. Adjacent densely calcified bladder calculus measuring 1.5 x 1.3 cm. 3. Chronic appearing mild left hydronephrosis with chronic scarring of the left kidney particularly near the inferior pole. 4. Tubular cystic density structure measuring up to 3 cm adjacent the cecum likely reflecting a dilated appendix. No significant stranding or inflammatory change. 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 5. Infrarenal aortic aneurysm measuring up to 2.9 cm containing small amount of anterior mural thrombus. Boris Roque MD Assessment and Plan Plan 2.9 cm AAA incidentally found. Mural thrombus noted but has no impact on rupture risk nor timing of therapy. Unlikely to ever reach threshold for repair (5.5 cm in men). Can f/u prn. Discussed with patient and his neighbor. Oziel Pastrana MD FASC RPVI senior administrative associate [facility] at [facility] [phone] Oziel Pastrana MD Oct 14, 2017 13:01
--- NOTE | 2017-10-14 14:31 | HHI.PR ---
Subjective Remarks NOT SEEN today Objective Vitals Vital Signs Date Time Temp Pulse Resp B/P (MAP) Pulse Ox O2 Delivery O2 Flow Rate FiO2 10/14/17 13:14 69 10/14/17 11:50 98.4 79 18 116/55 (75) 99 10/14/17 09:10 71 10/14/17 07:37 98 10/14/17 07:35 98.2 89 18 136/74 (94) 94 10/14/17 04:54 97.2 100 18 115/57 (76) 100 10/14/17 00:58 97.5 92 19 138/60 (86) 99 10/14/17 00:04 73 10/13/17 20:59 98.1 77 18 132/58 (82) 100 10/13/17 20:00 68 10/13/17 18:26 89 10/13/17 17:22 97.2 82 18 127/60 (82) 98 10/13/17 16:59 I/O 10/13/17 10/13/17 10/13/17 10/14/17 10/14/17 10/14/17 07:00 15:00 23:00 07:00 15:00 23:00 Intake Total 500 ml 600 ml 995 ml 1000 ml Balance 500 ml 600 ml 995 ml 1000 ml Intake IV Total 500 ml 600 ml 995 ml 1000 ml Bladder Scan Volume Amount 103 ml # Voids 1 1 1 # Bowel Movements 1 Result Diagram: 10/14/17 0955 10/14/17 0955 Imaging Last Impressions Chest X-Ray 10/13/17 1214 Signed Impressions: Service Date/Time: Friday, October 13, 2017 12:48 - CONCLUSION: 1. Questionable increased density in the right upper lung area. Recommend a 2 view PA and lateral chest x-ray for further evaluation. Robin Young MD Head CT 10/13/17 0000 Signed Impressions: Service Date/Time: Friday, October 13, 2017 13:53 - CONCLUSION: 1. No acute intra-animality. 2. Chronic appearing left frontal sinus and mild right maxillary mucosal sinus disease. 3. Small metallic fragments in the facial soft tissues and nasal septum. Boris Roque MD Chest CT 10/13/17 0000 Signed Impressions: Service Date/Time: Friday, October 13, 2017 20:23 - CONCLUSION: 1. No acute pulmonary abnormality is identified. There is mild centrilobular emphysema with mild biapical scar. No concerning pulmonary nodule is seen. 2. Severe atherosclerotic disease. Bryan Hobson MD Abdomen/Pelvis CT 10/13/17 0000 Signed Impressions: Service Date/Time: Friday, October 13, 2017 13:57 - CONCLUSION: 1. Enhancing posterior bladder mass measuring 2.5 x 2.7 cm consistent with bladder carcinoma. 2. Adjacent densely calcified bladder calculus measuring 1.5 x 1.3 cm. 3. Chronic appearing mild left hydronephrosis with chronic scarring of the left kidney particularly near the inferior pole. 4. Tubular cystic density structure measuring up to 3 cm adjacent the cecum likely reflecting a dilated appendix. No significant stranding or inflammatory change. 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 5. Infrarenal aortic aneurysm measuring up to 2.9 cm containing small amount of anterior mural thrombus. Boris Roque MD Objective Remarks GENERAL: Laying in bed. Thin patient. HEAD: Atraumatic. Normocephalic. EYES: some dry secretions noted on the right eyelids, right w no injection. No secretion note on the left. ENT: Airway patent. Mucous membranes do appear dry NECK: Trachea midline CARDIOVASCULAR: Regular rate and rhythm without murmurs RESPIRATORY: Clear to auscultation with normal respiratory effort. Decreased breath sounds symmetrically GASTROINTESTINAL: Abdomen soft, normal bowel sounds, some discomfort to deep palpation in the suprapubic area MUSCULOSKELETAL: Extremities without edema. moves around in bed, trying to find a comfortable spot and trying to pull covers on himself. NEUROLOGICAL: Moves all 4 extremities, flat affect. answers w yes or no but at times mumbles he is cold A/P Problem List: (1) UTI (urinary tract infection) ICD Code: N39.0 - Urinary tract infection, site not specified Status: Acute (2) Bladder mass ICD Code: N32.89 - Other specified disorders of bladder Status: Acute Assessment and Plan This is an 82-year-old male with no known comorbidities but very poor historian , presenting as a Richey act, found to have possible UTI and bladder mass and aortic aneurysm Altered mental status-could be beginning dementia, also could be toxic metabolic encephalopathy from UTI, monitor. Check B12 and RPR GNR Urinary tract infection with sepsis-urinalysis suspicious for infection, (+ ) leukocytosis, urine culture pending, on ceftriaxone Bladder mass- CT scan of the abdomen/pelvis reviewed, bladder mass 2.5 x 2.7 cm , suspicious for bladder cancer, patient is a retired colonel, there is also evidence of mild left hydronephrosis, urology has recommended Payne catheter insertion the postvoid volume over 200 ml. Has 103 ml. Op f/u for cystoscopy. Infrarenal aortic aneurysm- 2.9 cm, with small amount of anterior mural thrombus, vascular surgery recommended outpatient follow-up. Will need repair if aneurysm which is 5.5 cm. Baby control Hypertension-on Norvasc, clonidine as needed Acute versus chronic kidney disease- ? , No previous labs to compare with, continue IVF. Urinalysis only has trace proteinuria. Follow BMP. Diarrhea- C. difficile neg, ova and parasites pending. DVT prophylaxis: Heparin Case management consult, will likely need SNF for long-term care placement. Patient was admitted under Richey act, consulted psychiatry for further recommendations. From the ER documentation, patient's POA and was yesterday. Consulted palliative care for assistance with goals of care. Discharge Planning Pt under richey Act and psych consult in place Palliative care consult placed for assistance w goals of care. PT recommends rehab CM ff Problem Qualifiers (1) UTI (urinary tract infection): Qualified Codes: N30.00 - Acute cystitis without hematuria Sudeep Moses MD Oct 14, 2017 14:31
[2017-10-14] MEDS: cefTRIAXone INJ 1,000 MG in SODIUM CHLORIDE 0.9% INJ 100 ML IV SCH (14:51)
--- NOTE | 2017-10-14 15:33 | EKG ---
Date Performed: 10/13/2017 Time Performed: 13:04:40 PTAGE: 82 years EKG: Sinus rhythm MARKED LEFT AXIS DEVIATION RIGHT BUNDLE BRANCH BLOCK Left anterior fascicular block ABNORMAL ECG NO PREVIOUS TRACING DOCTOR: Inocente Ríos Interpretating Date/Time 10/14/2017 15:32:09
[2017-10-14] MEDS ORDERED: RESP: ALBUTEROL 2.5 MG/3 ML NEB (PRN) NEB (16:00)
--- NOTE | 2017-10-14 16:36 | PD.PSY.CON ---
Provisional Diagnosis Admission Date Oct 13, 2017 at 15:23 [place]. Dementia History of Present Illness Service Psychiatry Consult Requested By Attending Buddy Reason for Consult Richey act assessment Primary Care Physician No Primary Care Physician HPI Patient is an 82-year-old white male appears was admitted to the medical floor and found by neighbor living and squalor unable to care for self. It appears the responders did initiate a Richey act on this gentleman. Upon review of EMR patient has no prior mental health contact at this facility. Patient seen in his room with RN present throughout session. Patient is thin slender somewhat disheveled white male somewhat guarded at present but a frightened look on his face. Appears she is somewhat hard of hearing. However patient is disoriented to place time and situation. Upon discussion with nurse patient's is showing essentially no behavioral issues is cooperative with the staff except when being startled when he needs some more attention and understanding. At this time I see no need for any specific medication there does not appear to be any behavioral issues. While the patient is legally here under Richey act patient really does not meet Richey criteria for inpatient psychiatric hospitalization this is an organic issue. I feel he we do need to find a health care surrogate to help make decisions concerning this gentleman's care and future placement. However the patient is not a candidate for inpatient psychiatric hospitalization. Review of Systems ROS Limitations: Clinical Condition, Altered Mental Status Past Family Social History Coded Allergies: No Known Drug Allergies (Verified Allergy, Unknown, 10/13/17) Unable to Assess (Verified Allergy, Unknown, 10/13/17) PT STATES HE DOES NOT KNOW Unable to Obtain Active Prescriptions or Reported Meds Current Medications Medications (Trade) Dose Ordered Sig/Amirah Route Start Time Stop Time Status Last Admin Sodium Chloride 1,000 ml @ 100 mls/hr Q10H IV 10/13/17 15:19 10/14/17 10:57 (NS Flush) 2 ml UNSCH PRN IV FLUSH 10/13/17 15:30 (NS Flush) 2 ml BID IV FLUSH 10/13/17 21:00 10/13/17 20:04 (Tylenol) 650 mg Q4H PRN PO 10/13/17 15:30 (Heparin Inj) 5,000 units Q12H SQ 10/13/17 16:00 10/14/17 14:51 (Narcan Inj) 0.4 mg UNSCH PRN IV PUSH 10/13/17 15:30 (Fauzia-Colace) 1 tab BID PO 10/13/17 21:00 (Milk Of Magnesia Liq) 30 ml Q12H PRN PO 10/13/17 15:30 (Senokot) 17.2 mg Q12H PRN PO 10/13/17 15:30 (Dulcolax Supp) 10 mg DAILY PRN RECTAL 10/13/17 15:30 (Lactulose Liq) 30 ml DAILY PRN PO 10/13/17 15:30 Ceftriaxone Sodium 1000 mg/ Sodium Chloride 100 ml @ 200 mls/hr Q24H IV 10/14/17 15:00 10/14/17 14:51 (Norvasc) 5 mg DAILY PO 10/13/17 16:15 10/14/17 08:07 (Catapres) 0.1 mg Q6H PRN PO 10/13/17 16:15 (Albuterol Neb) 2.5 mg Q2HR NEB PRN NEB 10/14/17 16:00 Family Psych History None at this time due to patient's cognitive disability Social History Unknown at this time due to patient's cognitive disability Patient's Strengths (min. 2) Patient now receiving the help that he needs Physical Exam Please see MedSurg assessments Vital Signs Vital Signs Date Time Temp Pulse Resp B/P (MAP) Pulse Ox O2 Delivery O2 Flow Rate FiO2 10/14/17 15:29 98.5 71 18 136/64 (88) 98 10/13/17 14:00 Room Air I/O 10/14/17 10/14/17 10/15/17 08:00 16:00 00:00 Intake Total 995 ml 1100 ml Balance 995 ml 1100 ml Lab Results Test 10/13/17 22:38 10/13/17 23:50 10/14/17 09:55 Total Creatine Kinase 23 U/L Stool C. difficile Toxin (PCR) NEGATIVE Stl C. difficile Toxin Epiderm 027 PRESUMPTIVE NEGATIVE White Blood Count 11.4 TH/MM3 Red Blood Count 4.16 MIL/MM3 Hemoglobin 13.4 GM/DL Hematocrit 40.3 % Mean Corpuscular Volume 96.9 FL Mean Corpuscular Hemoglobin 32.1 PG Mean Corpuscular Hemoglobin Concent 33.1 % Red Cell Distribution Width 13.8 % Platelet Count 484 TH/MM3 Mean Platelet Volume 7.9 FL Neutrophils (%) (Auto) 84.7 % Lymphocytes (%) (Auto) 10.7 % Monocytes (%) (Auto) 3.7 % Eosinophils (%) (Auto) 0.3 % Basophils (%) (Auto) 0.6 % Neutrophils # (Auto) 9.6 TH/MM3 Lymphocytes # (Auto) 1.2 TH/MM3 Monocytes # (Auto) 0.4 TH/MM3 Eosinophils # (Auto) 0.0 TH/MM3 Basophils # (Auto) 0.1 TH/MM3 CBC Comment DIFF FINAL Differential Comment Blood Urea Nitrogen 24 MG/DL Creatinine 1.37 MG/DL Random Glucose 109 MG/DL Total Protein 7.0 GM/DL Albumin 2.5 GM/DL Calcium Level 9.7 MG/DL Alkaline Phosphatase 71 U/L Aspartate Amino Transf (AST/SGOT) 10 U/L Alanine Aminotransferase (ALT/SGPT) 26 U/L Total Bilirubin 0.5 MG/DL Direct Bilirubin 0.1 MG/DL Sodium Level 142 MEQ/L Potassium Level 4.0 MEQ/L Chloride Level 106 MEQ/L Carbon Dioxide Level 27.5 MEQ/L Anion Gap 9 MEQ/L Estimat Glomerular Filtration Rate 50 ML/MIN Indirect Bilirubin 0.4 MG/DL Vitamin B12 Level 547 PG/ML Date/Time Source Procedure Growth Status 10/13/17 23:50 Stool Stool Stool Pus (DAVID) - Final RARE WBC Complete 10/13/17 23:50 Stool Stool Stool Occult Blood (DAVID) - Final HEMOCCULT NEGATIVE Complete 10/13/17 12:40 Urine Catheterized Urine Urine Culture - Preliminary Gram Negative Panda Resulted Mental Status Examination Appearance: Disheveled Consciousness: Alert Speech: Other (patient making grunting responses) Language: Other (patient making grunting responses) Fund of Knowledge: Poor Attention and Concentration: Easily Distracted Memory: Recent (intact) Mood: Appropriate, Sad, Anxious Affect: Other (slight increase intensity) Thought Process & Associations: Other (markedly disorganized) Thought Content: Other (disorganized) Hallucination Type: None (difficult to ascertain due to patient's cognitive disability) Delusion Type: None (difficult to ascertain due to patient's cognitive disability) Suicidal Ideation: No Suicidal Plan: No Suicidal Intention: No Homicidal Ideation: No Homicidal Plan: No Homicidal Intention: No Insight: Poor Judgment: Poor Assessment & Plan Problem List: (1) Alzheimer's type dementia ICD Codes: G30.9 - Alzheimer's disease, unspecified; F02.80 - Dementia in other diseases classified elsewhere without behavioral disturbance Assessment & Plan Estimated LOS: days it appears at this time that the patient's primary issue is his dementia and inability to live independently. Patient would need a health care surrogate. Patient does not meet criteria for inpatient psychiatric hospitalization. At this time though we may continue the Richey act , the rn case manager should contact the patient's family to arrange for appropriate placement once he is medically cleared patient consult will sign off the present time Discharge Planning To be determined by the rn case manager in the family. Patient is not a candidate for inpatient psychiatric care at this time Request HC Surrog/Guard Advoc?: Yes Problem Qualifiers (1) Alzheimer's type dementia: Qualified Codes: G30.1 - Alzheimer's disease with late onset; F02.80 - Dementia in other diseases classified elsewhere without behavioral disturbance Bryan Gurrola MD Oct 14, 2017 16:35
[2017-10-15] VITALS (7 sets, daily range): BP systolic 126–156; BP diastolic 59–68; PULSE 71–101; RESP 16–19; TEMP 97.1–98.4; O2SAT 95–99
[2017-10-15] MEDS: HEPARIN SODIUM - SQ 10,000 UNITS/ML VIAL SQ SCH ×2 (03:40→15:41)
[2017-10-15] MEDS: SODIUM CHLOR 0.9% 1000 ML INJ 1,000 ML IV SCH ×2 (07:08→22:25)
[2017-10-15] MEDS: DOCUSATE SODIUM 50 MG/SENNA 8.6 MG TAB PO SCH ×2 (09:00→21:00)
[2017-10-15] MEDS: amLODIPine BESYLATE 5 MG TAB PO SCH (09:09)
[2017-10-15] MEDS: SODIUM CHLORIDE 0.9% FLUSH 10 ML FLUSH IV FLUSH SCH ×2 (09:10→21:00)
[2017-10-15 10:32] LABS: AUTOMATED NEUTROPHIL # 7.1 TH/MM3 (1.8-7.7); BASOPHIL # 0.1 TH/MM3 (0-0.2); BASOPHIL % 1.1 % (0.0-2.0); EOSINOPHIL % 0.4 % (0.0-4.0); HEMATOCRIT 40.2 % (39.0-51.0); HEMOGLOBIN 13.5 GM/DL (13.0-17.0); LYMPH % 17.1 % (9.0-44.0); LYMPHOCYTE # 1.6 TH/MM3 (1.0-4.8); MEAN CELL VOLUME 97.7 FL (80.0-100.0); MEAN CORPUSCULAR HEMOGLOBIN 32.9 PG (27.0-34.0); MEAN CORPUSCULAR HGB CONC 33.7 % (32.0-36.0); MEAN PLATELET VOLUME 8.1 FL (7.0-11.0); MONO % 7.1 % (0.0-8.0); MONOCYTE # 0.7 TH/MM3 (0-0.9); NEUT % 74.3 % (16.0-70.0); PLATELET COUNT 472 TH/MM3 (150-450); RED BLOOD COUNT 4.12 MIL/MM3 (4.50-5.90); RED CELL DISTRIBUTION WIDTH 13.7 % (11.6-17.2); WHITE BLOOD COUNT 9.6 TH/MM3 (4.0-11.0)
[2017-10-15 10:53] LABS: BICARBONATE 27.3 MEQ/L (21.0-32.0); CALCIUM 10.1 MG/DL (8.5-10.1); CREATININE 1.33 MG/DL (0.60-1.30); MAGNESIUM 2.5 MG/DL (1.5-2.5)
--- NOTE | 2017-10-15 11:58 | PD.CONS ---
Consult Service Palliative Care Consult Requested By Dr. Arevalo Primary Care Physician No Primary Care Physician Reason for Consultation a. To assist with evaluation and management of symptoms including: altered mental status, debility b. To assist medical decision maker(s) with: better understanding of current medical conditions; weighing benefits/burdens of medical treatment options; making medical treatment decisions. (Lester Valdivia) HPI History of Present Illness Mr. Hernandez is a 82 years old with a past medical history of macular degeneration, hypertension, BPH, inguinal hernia and questionable COPD.Patient was Richey Acted and brought to the ER on 10/13/17 after he was found by a neighbor/friend in his home covered in faeces with altered mental status. Patient`s friend reported that for the past weeks patient has been having a non- productive cough, loose stools and was getting more forgetful. ER Course: * Vital signs: Temperature 98.4, pulse 82, respirations 16, blood pressure 141/ 64 and O2 saturation 99% on room air. * EKG revealed sinus rhythm with marked left axis deviation, RBBB. Left anterior fascicular block. * Chest X ray revealed questionable increased density in the right upper lung area. * Laboratory workup revealed WBC 12.7, Ammonia 26, BUN/Creatinine 30/1.44, lactic acid 1.2, Troponin less than 0.02, Total protein 7.7, Albumin 2.6 * Head CT revealed chronic appearing left frontal sinus and mild right maxillary mucosal sinus disease with small metallic fragments in the facial soft tissues and nasal septum. * Abdomen/Pelvis CT revealed enhancing posterior bladder mass measuring 2.52.7 cm consistent with bladder carcinoma. Adjacent densely calcified calculus measuring 1.5 x 1.3 cm. Chronic appearing mild hydronephrosis with chronic scarring of the left kidney near the inferior pole. Tubular cystic density structure measuring up to 3 cm adjacent the cecum likely reflecting a dilated appendix. Findings subjective of an appendix mucocele. Infrarenal aortic aneurysm measuring up to 2.9cm containing small amount of anterior mural thrombus. * Chest CT revealed no acute pulmonary abnormality is identified. Mild centrilobular emphysema with mild biapical scar. Severe atherosclerotic disease. * Urine culture positive for E. Coli * Rocephin 1gram and 1L NS bolus administered Urology Dr. Dietrich consulted on 10/13/17 for evaluation and management of bladder mass and hydronephrosis who reviewed CT scan images and thinks that bladder mass is secondary to prostatic enlargement extending into the inferior portion of the bladder. Recommended checking post void residual with a bladder scanner. Vascular surgery Dr. Pastrana consulted on 10/13/17 for evaluation and management of infrarenal aortic aneurysm which he thinks the mural thrombus has no impact on risk for rupture and is unlikely to reach threshhold for repair. Psychiatry Dr. Gutierrez consulted on for Richey Act assessment who noted that patient has dementia and recommended finding a health care surrogate. Palliative care consulted to assist with goals of care. Patient seen and examined in his room in the presence of his step daughter Cary Cummins and son in law. Patient ambulated to oriented to self, confused to place, time and situation. Patient was not able to remember the name of his son-in-law or [id number]. He received 3 son-in-law as "my anderson" and that they were nice people. Patient is able to follow simple commands with all 4 extremities. Patient denies pain. Vital signs stable. Obtained patient's some of psychosocial and medical history from stepdaughter. Patient has a living will and history of daughter was able to provide a copy of the living will. Patient had named his Nikki Hernandez as healthcare surrogate who 5 years ago and his stepson Bruce Benson was the alternate healthcare surrogate. Unfortunately the alternate healthcare surrogate on October 05, 2017. According to patients stepdaughter Cary Cummins, patient has 3 living adult children,daughters Andria, Mary; Mirelal Jade, and son Avni Hernandez who will serve as patient's healthcare proxys according to [place] statute. Contact information also provided. Separate telephone conversations with all 3 adult children. Updated them on patient's current medical status, imaging findings and treatment plan. Discussed CPR, limitations and benefits given ongoing comorbidities. All 3 children elected DNR for patient. Patient's older daughter Andria stated that she last saw her father about a year ago and patient`s neighbor had been updating her regarding patient's decline in the past few months, and that patient has repeatedly told his neighbor that he would want to remain in his home for his end of life care. All 3 adult children mentioned that they would want to honor their father's wishes. Introduced hospice philosophy and benefits. At this time, family wants to discuss what would be the best option for their father given the fact that he is not able to live independently and that he wishes to remain in his home. Another telephone conversation with Mirella Jade and bedside discussion with Avni Hernandez who both deferred all medical decision making to their sister Mary Ayers. They both agreed that they will opt out and Andria will act as patient`s health care proxy. . Function/Cognitive Trajectory Patient lives alone and has been independent with all his ADLs though there has been reports that in the past 8 weeks patient has been increasingly getting forgetful. Patient uses a cane at home. Patient has a neighbor who constantly checks on him and according to patient`s step daughter who visits patient every 2-3 weeks, she had to buy him adult depends/briefs about 6-8 weeks ago due to bowel and bladder incontinence. Stepdaughter mentioned gradual unintentional weight loss. She was unable to quantify how much weight patient has lost. She also mentions that patient stopped going to see his PCP 3 years ago because he was nit happy that his original PCP at the [facility] had retired. Patient only eats microwavable meals. He has a allergist/immunologist who comes in x3 times per week and assists with cleaning the house and doing laundry. In the past week patient has had decreased oral intake and decreased appetite. . (Lester Valdivia) Review of Systems ROS Limitations: Altered Mental Status Constitutional: COMPLAINS OF: Weight loss, Change in appetite, Generalized weakness, DENIES: Fever Eyes: COMPLAINS OF: Vision loss (right prosthetic eye) Ears, nose, mouth, throat: COMPLAINS OF: Hearing loss (Patient has bilateral hearing aids but refuses to wear them.) Respiratory: COMPLAINS OF: Cough, DENIES: Hemoptysis, Sputum production, Shortness of breath Cardiovascular: DENIES: Chest pain Gastrointestinal: COMPLAINS OF: Diarrhea, DENIES: Nausea, Vomiting Genitourinary: COMPLAINS OF: Urinary incontinence, Decreased stream Hematologic/Lymphatics: COMPLAINS OF: Bruising Psychiatric: COMPLAINS OF: Confusion Other ROS: ROS obtained from EMR and clinical observation. . 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 Past Surgical History Irrigation and debridement of open distal phalanx fracture with debridement of skin & subcutaneous tissue & bone as well as local advancement flap using V-Y flap 05/2003 . Reported Medications Reported Meds & Active Scripts Active Active Prescriptions or Reported Medications Unobtainable . Current Medications Medications (Trade) Dose Ordered Sig/Amirah Route Start Time Stop Time Status Last Admin Sodium Chloride 1,000 ml @ 100 mls/hr Q10H IV 10/13/17 15:19 10/14/17 22:53 (NS Flush) 2 ml UNSCH PRN IV FLUSH 10/13/17 15:30 (NS Flush) 2 ml BID IV FLUSH 10/13/17 21:00 10/15/17 09:10 (Tylenol) 650 mg Q4H PRN PO 10/13/17 15:30 (Heparin Inj) 5,000 units Q12H SQ 10/13/17 16:00 10/15/17 03:40 (Narcan Inj) 0.4 mg UNSCH PRN IV PUSH 10/13/17 15:30 (Fauzia-Colace) 1 tab BID PO 10/13/17 21:00 (Milk Of Magnesia Liq) 30 ml Q12H PRN PO 10/13/17 15:30 (Senokot) 17.2 mg Q12H PRN PO 10/13/17 15:30 (Dulcolax Supp) 10 mg DAILY PRN RECTAL 10/13/17 15:30 (Lactulose Liq) 30 ml DAILY PRN PO 10/13/17 15:30 Ceftriaxone Sodium 1000 mg/ Sodium Chloride 100 ml @ 200 mls/hr Q24H IV 10/14/17 15:00 10/14/17 14:51 (Norvasc) 5 mg DAILY PO 10/13/17 16:15 10/15/17 09:09 (Catapres) 0.1 mg Q6H PRN PO 10/13/17 16:15 (Albuterol Neb) 2.5 mg Q2HR NEB PRN NEB 10/14/17 16:00 Family History Mother in her 90`s -had dementia . Substance Use Tobacco: Current smoker- smokes cigars Alcohol: Consumes x 3 vodka/tonic per day Prescription med abuse: None reported Illicits:None reported . Psychosocial History Patient was born and raised in [place]. Patient was twice, he is from his first and his second is . He retired from [employer] [place] 32 years ago and served during the [place] war. Patient has 3 adult children , 2 daughters and 1 son. Patient had 3 step children, 2 stepdaughters and once step son who was his alternate HCS. . Spiritual/Cultural Factors Patient is Scient[employer] but he stopped attending islam 5 years ago after his . . (Lester Valdivia) Living Will: Copy in medical record Health Care Surrogate: Copy in medical record Date completed: 08/02/2004 . Health Care Surrogate(s): Spouse- Nikki Hernandez -healthcare surrogate who 5 years ago Sienna Benson was the alternate healthcare surrogate - on 2017 Health care Proxys Daughter-Andria Hernandez-[phone]- vault person for al medical decision making Daughter-Mirella Jade-[phone]- Son-Avni HernandezYpayqirs-[phone] Telephone conversation with Mirella Jade and bedside discussion with Avni Hernandez who both deferred all medical decision making to their sister Mary Ayers. They both agreed that they will opt out and Andria Hernandez will act as patient`s health care proxy. Family/friends goals: Health care proxys` have elected DNR and will further discuss hospice option. . Ethical and Legal Issues None identified at this time. . (Lester Valdivia) Physical Exam Vital Signs Date Time Temp Pulse Resp B/P (MAP) Pulse Ox O2 Delivery O2 Flow Rate FiO2 10/15/17 08:00 98.1 83 19 142/66 (91) 95 10/15/17 05:08 97.6 72 18 138/68 (91) 98 10/15/17 00:58 98.0 77 18 147/63 (91) 99 10/15/17 00:02 101 10/14/17 20:57 98.9 87 18 138/88 (105) 98 10/14/17 17:32 98 21 10/14/17 17:17 69 10/14/17 15:29 98.5 71 18 136/64 (88) 98 10/14/17 13:14 69 10/14/17 11:50 98.4 79 18 116/55 (75) 99 Exam CONSTITUTIONAL/GENERAL: This is an adequately nourished patient, in no apparent distress. TUBES/LINES/DRAINS: SKIN: No jaundice, rashes, or lesions. Ecchymoses on upper extremities. No wounds seen anteriorly. Skin temperature appropriate. Not diaphoretic. HEAD: Atraumatic. Normocephalic. EYES: Pupils equal and round and reactive. Extraocular motions intact. No scleral icterus. No injection or drainage. Fundi not examined. ENT: Hearing grossly normal. Nose without bleeding or purulent drainage. Throat without visible erythema, exudates, masses, or lesions. NECK: Trachea midline. Supple, nontender. No palpable thyroid enlargement or nodularity. CARDIOVASCULAR: Regular rate and rhythm without murmurs, gallops, or rubs. No JVD. Peripheral pulses symmetric. RESPIRATORY/CHEST: Symmetric, unlabored respirations. Clear to auscultation. Breath sounds equal bilaterally. No wheezes, rales, or rhonchi. GASTROINTESTINAL: Abdomen soft, non-tender, nondistended. No hepato-splenomegaly , or palpable masses. No guarding. Bowel sounds present. GENITOURINARY: Without palpable bladder distension. Payne catheter in place. MUSCULOSKELETAL: Extremities without clubbing, cyanosis, or edema. No joint tenderness or effusion noted. No calf tenderness. No mottling or clubbing. LYMPHATICS: No palpable cervical or supraclavicular adenopathy. NEUROLOGICAL: Awake and alert. Motor and sensory grossly within normal limits. Follows commands. Cognitively sharp. Moves all extremities. PSYCHIATRIC: No obvious anxiety/depression. no apparent hallucinations or other psychotic thought process. (Lestre Valdivia) Diagnostic Tests Laboratory Laboratory Tests Test 10/13/17 12:05 10/13/17 12:15 10/13/17 12:25 10/13/17 12:40 White Blood Count 12.7 TH/MM3 (4.0-11.0) Red Blood Count 4.27 MIL/MM3 (4.50-5.90) Hemoglobin 13.8 GM/DL (13.0-17.0) Hematocrit 41.1 % (39.0-51.0) Mean Corpuscular Volume 96.4 FL (80.0-100.0) Mean Corpuscular Hemoglobin 32.4 PG (27.0-34.0) Mean Corpuscular Hemoglobin Concent 33.6 % (32.0-36.0) Red Cell Distribution Width 13.8 % (11.6-17.2) Platelet Count 487 TH/MM3 (150-450) Mean Platelet Volume 7.3 FL (7.0-11.0) Neutrophils (%) (Auto) 83.9 % (16.0-70.0) Lymphocytes (%) (Auto) 8.7 % (9.0-44.0) Monocytes (%) (Auto) 6.3 % (0.0-8.0) Eosinophils (%) (Auto) 0.4 % (0.0-4.0) Basophils (%) (Auto) 0.7 % (0.0-2.0) Neutrophils # (Auto) 10.7 TH/MM3 (1.8-7.7) Lymphocytes # (Auto) 1.1 TH/MM3 (1.0-4.8) Monocytes # (Auto) 0.8 TH/MM3 (0-0.9) Eosinophils # (Auto) 0.0 TH/MM3 (0-0.4) Basophils # (Auto) 0.1 TH/MM3 (0-0.2) CBC Comment DIFF FINAL Differential Comment Blood Urea Nitrogen 30 MG/DL (7-18) Creatinine 1.44 MG/DL (0.60-1.30) Random Glucose 93 MG/DL (74-106) Total Protein 7.7 GM/DL (6.4-8.2) Albumin 2.6 GM/DL (3.4-5.0) Calcium Level 10.1 MG/DL (8.5-10.1) Alkaline Phosphatase 72 U/L (45-117) Aspartate Amino Transf (AST/SGOT) 22 U/L (15-37) Alanine Aminotransferase (ALT/SGPT) 40 U/L (12-78) Total Bilirubin 0.6 MG/DL (0.2-1.0) Sodium Level 137 MEQ/L (136-145) Potassium Level 4.9 MEQ/L (3.5-5.1) Chloride Level 101 MEQ/L (98-107) Carbon Dioxide Level 30.6 MEQ/L (21.0-32.0) Anion Gap 5 MEQ/L (5-15) Estimat Glomerular Filtration Rate 47 ML/MIN (>89) Lactic Acid Level 1.2 mmol/L (0.4-2.0) Prothrombin Time 10.2 SEC (9.8-11.6) Prothromb Time International Ratio 1.0 RATIO Activated Partial Thromboplast Time 28.9 SEC (24.3-30.1) Ammonia 26 MCMOL/L (11-32) Total Creatine Kinase 15 U/L (39-308) Troponin I LESS THAN 0.02 NG/ML Thyroid Stimulating Hormone 3rd Gen 1.260 uIU/ML (0.358-3.740) Urine Color YELLOW (YELLW/STRAW) Urine Turbidity HAZY (CLEAR) Urine pH 6.5 (5.0-8.5) Urine Specific [place] 1.011 (1.002-1.035) Urine Protein TRACE mg/dL (NEG-TRACE) Urine Glucose (UA) NEG mg/dL (NEG) Urine Ketones NEG mg/dL (NEG) Urine Occult Blood SMALL (NEG) Urine Nitrite NEG (NEG) Urine Bilirubin NEG (NEG) Urine Urobilinogen LESS THAN 2.0 MG/DL (LESS Urine Leukocyte Esterase LARGE (NEG) Urine RBC 5 /hpf (0-3) Urine WBC 135 /hpf (0-5) Urine WBC Clumps MANY (NONE) Urine Bacteria MANY /hpf (NONE) Urine Hyaline Casts 2 /lpf (RARE) Microscopic Urinalysis Comment CATH-CULTURE IND Urine Opiates Screen NEG (NEG) Urine Barbiturates Screen NEG (NEG) Urine Amphetamines Screen NEG (NEG) Urine Benzodiazepines Screen NEG (NEG) Urine Cocaine Screen NEG (NEG) Urine Cannabinoids Screen NEG (NEG) Test 10/13/17 22:38 10/13/17 23:50 10/14/17 09:55 10/15/17 07:45 Total Creatine Kinase 23 U/L (39-308) Stool C. difficile Toxin (PCR) NEGATIVE (NEGATIVE) Stl C. difficile Toxin Epiderm 027 PRESUMPTIVE NEGATIVE White Blood Count 11.4 TH/MM3 (4.0-11.0) 9.6 TH/MM3 (4.0-11.0) Red Blood Count 4.16 MIL/MM3 (4.50-5.90) 4.12 MIL/MM3 (4.50-5.90) Hemoglobin 13.4 GM/DL (13.0-17.0) 13.5 GM/DL (13.0-17.0) Hematocrit 40.3 % (39.0-51.0) 40.2 % (39.0-51.0) Mean Corpuscular Volume 96.9 FL (80.0-100.0) 97.7 FL (80.0-100.0) Mean Corpuscular Hemoglobin 32.1 PG (27.0-34.0) 32.9 PG (27.0-34.0) Mean Corpuscular Hemoglobin Concent 33.1 % (32.0-36.0) 33.7 % (32.0-36.0) Red Cell Distribution Width 13.8 % (11.6-17.2) 13.7 % (11.6-17.2) Platelet Count 484 TH/MM3 (150-450) 472 TH/MM3 (150-450) Mean Platelet Volume 7.9 FL (7.0-11.0) 8.1 FL (7.0-11.0) Neutrophils (%) (Auto) 84.7 % (16.0-70.0) 74.3 % (16.0-70.0) Lymphocytes (%) (Auto) 10.7 % (9.0-44.0) 17.1 % (9.0-44.0) Monocytes (%) (Auto) 3.7 % (0.0-8.0) 7.1 % (0.0-8.0) Eosinophils (%) (Auto) 0.3 % (0.0-4.0) 0.4 % (0.0-4.0) Basophils (%) (Auto) 0.6 % (0.0-2.0) 1.1 % (0.0-2.0) Neutrophils # (Auto) 9.6 TH/MM3 (1.8-7.7) 7.1 TH/MM3 (1.8-7.7) Lymphocytes # (Auto) 1.2 TH/MM3 (1.0-4.8) 1.6 TH/MM3 (1.0-4.8) Monocytes # (Auto) 0.4 TH/MM3 (0-0.9) 0.7 TH/MM3 (0-0.9) Eosinophils # (Auto) 0.0 TH/MM3 (0-0.4) 0.0 TH/MM3 (0-0.4) Basophils # (Auto) 0.1 TH/MM3 (0-0.2) 0.1 TH/MM3 (0-0.2) CBC Comment DIFF FINAL DIFF FINAL Differential Comment Blood Urea Nitrogen 24 MG/DL (7-18) Creatinine 1.37 MG/DL (0.60-1.30) Random Glucose 109 MG/DL (74-106) Total Protein 7.0 GM/DL (6.4-8.2) Albumin 2.5 GM/DL (3.4-5.0) Calcium Level 9.7 MG/DL (8.5-10.1) Alkaline Phosphatase 71 U/L (45-117) Aspartate Amino Transf (AST/SGOT) 10 U/L (15-37) Alanine Aminotransferase (ALT/SGPT) 26 U/L (12-78) Total Bilirubin 0.5 MG/DL (0.2-1.0) Direct Bilirubin 0.1 MG/DL (0.0-0.2) Sodium Level 142 MEQ/L (136-145) Potassium Level 4.0 MEQ/L (3.5-5.1) Chloride Level 106 MEQ/L (98-107) Carbon Dioxide Level 27.5 MEQ/L (21.0-32.0) Anion Gap 9 MEQ/L (5-15) Estimat Glomerular Filtration Rate 50 ML/MIN (>89) Indirect Bilirubin 0.4 MG/DL (0.0-0.8) Vitamin B12 Level 547 PG/ML (193-986) (Lester Valdivia [facility]) Result Diagram: 10/15/17 0745 10/14/17 0955 Microbiology Microbiology Date/Time Source Procedure Growth Status 10/13/17 23:50 Stool Stool Stool Pus (DAVID) - Final RARE WBC Complete 10/13/17 23:50 Stool Stool Stool Occult Blood (DAVID) - Final HEMOCCULT NEGATIVE Complete 10/13/17 23:50 Stool Stool - Final NO ENTERIC PATHOGENS DETECTED BY PCR... Complete 10/13/17 23:50 Stool Stool Rotavirus Antigen - Final NEGATIVE - ROTAVIRUS ANTIGEN IS ABSEN... Complete 10/13/17 12:40 Urine Catheterized Urine Urine Culture - Final Escherichia Coli Complete (Lester Valdivai) Patient/Family Conference Issues Discussed: * Palliative care role, purpose, approach * Additional medical, psychosocial, and spiritual history * Patients general health, functional status, and cognitive changes in the months leading up to the current hospitalization * Patient/family understanding of the current medical problems * Patient/family understanding of prognosis * Patients goals of care as best understood from advance directives and/or conversations and/or values * Current medical treatment options and benefits/burdens of those options * Likely scenarios comparing ongoing aggressive care with a transition to comfort measures only * Questions answered to the best of my ability * Palliative care contact information provided (Lester Valdivia) Assessment and Plan Disease Oriented Problem List: (1) UTI (urinary tract infection) (2) Alzheimer's type dementia (3) Bladder mass (4) Abdominal aortic aneurysm without rupture Symptom Scale: (1) Altered mental status 0-10 Scale: Unable to quantify Comment: Patient came in with altered mental status. . (2) Debility Pertinent Non-Medical Issues Psychosocial:Patient was born and raised in [place]. Patient was twice , he is from his first and his second is . He retired from [employer] [place] 32 years ago and served during the [place] war. Patient has 3 adult children, 2 daughters and 1 son. Patient had 3 step children, 2 stepdaughters and once step son who was his alternate HCS. Spiritual:Patient is Scientology but he stopped attending islam 5 years ago after his . Legal: Patient here daily living will but unfortunately both healthcare surrogate and alternate surrogate are . Ethical issues impacting care: None identified at this time . Important Contacts Daughter-Andria Hernandez-[phone]- vault person for al medical decision making Daughter-Mirella Jade-[phone]- Son-Avni HernandezZthgascz-[phone] Step Daughter- CumminsCary [phone] . Prognosis Mr. Hernandez is a 82 years old with a past medical history of questionable COPD. Patient was Richey Acted and brought to the ER on 10/13/17 after he was found by a neighbor/friend in his home covered in faeces. Clinical course complicated with altered mental status. Given ongoing comorbidities patient remains at high risk for further complications, deterioration and decline. . Code Status: No Code Plan PLAN: Legal decision maker: Patient was seen by psychiatrist and deemed incapacitated to participate in his medical decision making. However patient had completed a living will with a health care care surrogate and alternate HCS who both are . According to [place] statute patient`s 3 adult children will serve as his health care proxys. 2 children Yasmany Vu and Avni Hernandez opted out and patient`s daughter Andria Hernandez will serve as patient`s health care surrogate. Goals: Aggressive short of no code CODE STATUS: No Code- DNR SYMPTOMS: * Altered mental status:Multifactorial. Patient has been showing dementia like symptoms at home. Patient evaluated by Psychiatry who noted that patient has dementia with no behavioral disturbances. His urine culture was positive for E.Coli. Patient currently receiving antibiotics for UTI. No recommendations at this time. * Debility: Progressive. Patient has been losing weight unintentionally and has had decreased oral intake in the past few months. Recommending physical therapy if family decides that they want aggressive treatment. Palliative care will continue to follow the patient during hospital course as condition evolves, to assist patient/decision-maker with understanding of their medical conditions, weighing benefits/burdens of treatment options, for clarification of goals of treatment. Additionally will assist with any symptoms of palliative concern. (Lester Valdivia) Thank you for the opportunity to participate in the care of Mr. Hernandez. (Lester Valdivia) Attestation To help prompt me to consider important information that might be impacting today's encounter and assessment, information from prior notes written by myself or my colleagues may have been "brought forward" into today's note. My signature on this note, however, is an attestation that I personally performed the exam, history, and/or decision-making noted today, and, unless otherwise indicated, the interactions with patient, family, and staff as well as the review of records all occurred today. I also attest that the listed assessment and stated plan reflect my best clinical judgment today based on the combination of historical information, prior notes, and today's exam/ interactions. When time spent is documented, it refers only to time spent today by the signer, or if indicated, combined time spent today by collaborating physician/nurse practitioner. (Lester Valdivia) Collaborating MD Comments Chart reviewed. Case discussed with palliative care MOTOR TESTER. Above MOTOR TESTER note reviewed and I concur. . (Toy Church MD) Lester Valdivia Oct 15, 2017 11:46 Toy Church MD Oct 24, 2017 16:38
--- NOTE | 2017-10-15 14:53 | HHI.PR ---
Subjective Remarks Follow-up encephalopathy. Patient is awake but confused. He has no complaints. Patient seen with stepdaughter who states patient just wants to go home and does not want anymore intervention. Patient's healthcare surrogate is his stepson who recently. He has 3 estranged children. Dw Palliative care Objective Vitals Vital Signs Date Time Temp Pulse Resp B/P (MAP) Pulse Ox O2 Delivery O2 Flow Rate FiO2 10/15/17 12:00 98.4 71 18 139/61 (87) 96 10/15/17 08:00 98.1 83 19 142/66 (91) 95 10/15/17 05:08 97.6 72 18 138/68 (91) 98 10/15/17 00:58 98.0 77 18 147/63 (91) 99 10/15/17 00:02 101 10/14/17 20:57 98.9 87 18 138/88 (105) 98 10/14/17 17:32 98 21 10/14/17 17:17 69 10/14/17 15:29 98.5 71 18 136/64 (88) 98 I/O 10/14/17 10/14/17 10/14/17 10/15/17 10/15/17 10/15/17 07:00 15:00 23:00 07:00 15:00 23:00 Intake Total 995 ml 1000 ml 1220 ml 580 ml Balance 995 ml 1000 ml 1220 ml 580 ml Intake Oral 120 ml 580 ml IV Total 995 ml 1000 ml 1100 ml Bladder Scan Volume Amount 103 ml # Voids 1 5 1 3 # Bowel Movements 1 1 Result Diagram: 10/15/17 0745 10/15/17 0745 Imaging Last Impressions Chest X-Ray 10/13/17 1214 Signed Impressions: Service Date/Time: Friday, October 13, 2017 12:48 - CONCLUSION: 1. Questionable increased density in the right upper lung area. Recommend a 2 view PA and lateral chest x-ray for further evaluation. Robin Young MD Head CT 10/13/17 0000 Signed Impressions: Service Date/Time: Friday, October 13, 2017 13:53 - CONCLUSION: 1. No acute intra-animality. 2. Chronic appearing left frontal sinus and mild right maxillary mucosal sinus disease. 3. Small metallic fragments in the facial soft tissues and nasal septum. Boris Roque MD Chest CT 10/13/17 0000 Signed Impressions: Service Date/Time: Friday, October 13, 2017 20:23 - CONCLUSION: 1. No acute pulmonary abnormality is identified. There is mild centrilobular emphysema with mild biapical scar. No concerning pulmonary nodule is seen. 2. Severe atherosclerotic disease. Bryan Hobson MD Abdomen/Pelvis CT 10/13/17 0000 Signed Impressions: Service Date/Time: Friday, October 13, 2017 13:57 - CONCLUSION: 1. Enhancing posterior bladder mass measuring 2.5 x 2.7 cm consistent with bladder carcinoma. 2. Adjacent densely calcified bladder calculus measuring 1.5 x 1.3 cm. 3. Chronic appearing mild left hydronephrosis with chronic scarring of the left kidney particularly near the inferior pole. 4. Tubular cystic density structure measuring up to 3 cm adjacent the cecum likely reflecting a dilated appendix. No significant stranding or inflammatory change. 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 5. Infrarenal aortic aneurysm measuring up to 2.9 cm containing small amount of anterior mural thrombus. Boris Roque MD Objective Remarks GENERAL: Laying in bed. Thin patient. HEAD: Atraumatic. Normocephalic. EYES: some dry secretions noted on the right eyelids, right w no injection. No secretion note on the left. ENT: Airway patent. Mucous membranes do appear dry NECK: Trachea midline CARDIOVASCULAR: Regular rate and rhythm without murmurs RESPIRATORY: Clear to auscultation with normal respiratory effort. Decreased breath sounds symmetrically GASTROINTESTINAL: Abdomen soft, normal bowel sounds MUSCULOSKELETAL: Extremities without edema. moves around in bed, NEUROLOGICAL: Moves all 4 extremities, flat affect. answers w yes or no Procedures none A/P Problem List: (1) UTI (urinary tract infection) ICD Code: N39.0 - Urinary tract infection, site not specified Status: Acute (2) Bladder mass ICD Code: N32.89 - Other specified disorders of bladder Status: Acute Assessment and Plan This is an 82-year-old male with no known comorbidities but very poor historian , presenting as a Richey act, found to have possible UTI and bladder mass and aortic aneurysm Metabolic encephalopathy from UTI, monitor. History of dementia. Check RPR E. coli urinary tract infection with sepsis-switch to p.o. ciprofloxacin Bladder mass- CT scan of the abdomen/pelvis reviewed, bladder mass 2.5 x 2.7 cm , suspicious for bladder cancer, patient is a retired colonel, there is also evidence of mild left hydronephrosis, urology has recommended Payne catheter insertion the postvoid volume over 200 ml. Has 103 ml. Op f/u for cystoscopy. Infrarenal aortic aneurysm- 2.9 cm, with small amount of anterior mural thrombus, vascular surgery recommended outpatient follow-up. Will need repair if aneurysm which is 5.5 cm. BP control Hypertension-on Norvasc, clonidine as needed Acute versus chronic kidney disease- ? , No previous labs to compare with, continue IVF. Urinalysis only has trace proteinuria. Follow BMP. Improving Diarrhea- C. difficile neg, ova and parasites pending. DVT prophylaxis: Heparin Case management consult, will likely need SNF for long-term care placement. Patient was admitted under Richey act, consulted psychiatry for further recommendations. Recommended to continue Richey at the patient is placed. Palliative care consulted to clarify goals of care Discharge Planning Rehab vs Hospice pending further discussion with family Problem Qualifiers (1) UTI (urinary tract infection): Qualified Codes: N30.00 - Acute cystitis without hematuria Sudeep Moses MD Oct 15, 2017 14:53
[2017-10-15] MEDS: cefTRIAXone INJ 1,000 MG in SODIUM CHLORIDE 0.9% INJ 100 ML IV SCH (15:41)
[2017-10-15] MEDS: CIPROFLOXACIN 250 MG TAB PO SCH (22:25)
[2017-10-16 00:43] VITALS: BP 164/72; PULSE 80; RESP 18; TEMP 97.7; O2SAT 98
[2017-10-16] MEDS: SODIUM CHLOR 0.9% 1000 ML INJ 1,000 ML IV SCH ×3 (03:19→23:19)
[2017-10-16] MEDS: HEPARIN SODIUM - SQ 10,000 UNITS/ML VIAL SQ SCH ×2 (04:11→15:43)
[2017-10-16 04:12] VITALS: BP 127/57; PULSE 72; RESP 16; TEMP 97.8; O2SAT 95
[2017-10-16 08:00] VITALS: BP_SYST 126; BP_SYST 144; BP_DIAS 60; PULSE 66; PULSE 67; RESP 18; TEMP 97.4; TEMP 97.7; O2SAT 100; O2SAT 99
[2017-10-16] MEDS: DOCUSATE SODIUM 50 MG/SENNA 8.6 MG TAB PO SCH ×2 (08:12→20:31)
[2017-10-16] MEDS: CIPROFLOXACIN 250 MG TAB PO SCH ×2 (08:12→20:31)
[2017-10-16] MEDS: amLODIPine BESYLATE 5 MG TAB PO SCH (08:12)
[2017-10-16] MEDS: SODIUM CHLORIDE 0.9% FLUSH 10 ML FLUSH IV FLUSH SCH ×2 (08:13→20:31)
--- NOTE | 2017-10-16 11:06 | HHI.FF ---
Face to Face Verification Diagnosis: (1) Bladder mass (2) Alzheimer's type dementia Physical Therapy Order: Evaluate and Treat, Improve ambulation, Strength and gait training Home Health Nursing Order: Medical education Signs/symptoms of disease process Medication education-adverse effect Nursing assessment with vital signs I have seen patient Delfino Hernandez on 10/16/17. My clinical findings support the need for the requested home health care services because: Deconditioned w/ increased weakness I certify that my clinical findings support that this patient is homebound because: Unsafe to leave home unassisted Sudeep Moses MD Oct 16, 2017 11:06
--- NOTE | 2017-10-16 11:06 | HHI.DCPOC ---
Discharge Care Plan Diagnosis: (1) Bladder mass Your Health Problems Are: Difficulty with ADL Exercise Tolerance Goals to Promote Your Health * To prevent worsening of your condition and complications * To maintain your health at the optimal level Directions to Meet Your Goals Take your medications as prescribed Follow your dietary instruction Follow activity as directed Keep your appointments as scheduled Take your immunizations and boosters as scheduled If your symptoms worsen call your PCP, if no PCP go to Urgent Care Center or Emergency Room Smoking is Dangerous to Your Health. Avoid second hand smoke Call the 24-hour hour crisis hotline for domestic abuse at Sudeep Moses MD Oct 16, 2017 11:06
[2017-10-16 12:04] VITALS: O2SAT 100
--- NOTE | 2017-10-16 13:33 | HHI.HCPN ---
Reason for visit a. To assist with evaluation and management of symptoms including: altered mental status, debility b. To assist medical decision maker(s) with: better understanding of current medical conditions; weighing benefits/burdens of medical treatment options; making medical treatment decisions. (Lester Valdivia) Subjective/Interval History Patient is in bed without a gown on covered with a blanket. Patient states that he went to use the bathroom and his gown is in there. Alert to self and place today. Patient`s neighbor who always checks on him arrived during visit and patient was not able to tell me his neighbors name but was able to state that he "knows him and he is very good to him". Patient has refused to have his PIV replaced today and refused breakfast but he sat up to eat a cheeseburger that his neighbor Romel Headley" brought in for him. Patient denies pain. Vital signs stable. Patient is now medically discharged. Patient`s son and daughter in law in room. Telephone conversation with patient` s daughter Andria, updated her on patient`s status and that he has been medically discharged. Family looking at available options for patient to be safely discharged home. They are trying to find out what benefits he is eligible for from the [employer] and possibly have a family member move in with patient in his home. Provided patient`s daughter with the local [employer] number to contact them to see if they are able to assist. enterprise architect manager also working with patient`s family. Family interested to have more information regarding hospice services. Explained to Andria that she will receive an informative call from hospice and even if patient may not qualify now, she can always call hospice for a reassessment if patient continues to decline. Patient`s daughter planning to visit with patient on . Case discussed with Dr. Moses, sample case porter Zuleyma and bedside RN. Family appreciative of palliative care. . Family/friend interactions Bedside conversation with patient`s son Avni and emkvriir-[id number]-tri. Telephone conversation with patient`s daughters Andria and Mirella. . (Lester Valdivia) Advance Directives Living Will: Copy in medical record Health Care Surrogate: Copy in medical record (Lester Valdivia) Advance Directive Specifics Date completed: 08/02/2004 . Health Care Surrogate(s): Spouse- Nikki Hernandez -healthcare surrogate who 5 years ago Sienna Benson was the alternate healthcare surrogate - on 2017 Health care Proxys Daughter-Andria Hernandez-[phone]- auto parts counter person for al medical decision making Daughter-Mirella Jade-[phone]- Son-Avni HernandezXochullt-[phone] Telephone conversation with Mirella Jade and bedside discussion with Avni Hernandez who both deferred all medical decision making to their sister Mary Ayers. They both agreed that they will opt out and Andria Hernandez will act as patient`s health care proxy. (Lester Valdivia) Objective Vital Signs Date Time Temp Pulse Resp B/P (MAP) Pulse Ox O2 Delivery O2 Flow Rate FiO2 10/16/17 12:04 100 10/16/17 08:00 97.7 67 18 126/60 (82) 99 10/16/17 08:00 97.4 66 18 144/60 (88) 100 10/16/17 04:12 97.8 72 16 127/57 (80) 95 10/16/17 00:43 97.7 80 18 164/72 (102) 98 10/15/17 22:23 98.0 80 16 156/68 (97) 98 10/15/17 15:57 97.1 80 19 126/59 (81) 97 Intake & Output 10/16/17 10/16/17 07:00 19:00 # Voids 4 Physical Exam CONSTITUTIONAL/GENERAL: This is an adequately nourished patient, in no apparent distress. TUBES/LINES/DRAINS: PIV SKIN: No jaundice, rashes, or lesions. Ecchymoses on upper extremities. No wounds seen anteriorly. Skin temperature appropriate. Not diaphoretic. HEAD: Atraumatic. Normocephalic. EYES: Pupils equal and round and reactive. Extraocular motions intact. No scleral icterus. No injection or drainage. Fundi not examined. ENT: Hearing grossly normal. Nose without bleeding or purulent drainage. Throat without visible erythema, exudates, masses, or lesions. NECK: Trachea midline. Supple, nontender. No palpable thyroid enlargement or nodularity. CARDIOVASCULAR: Regular rate and rhythm without murmurs, gallops, or rubs. No JVD. Peripheral pulses symmetric. RESPIRATORY/CHEST: Symmetric, unlabored respirations. Clear to auscultation. Breath sounds equal bilaterally. No wheezes, rales, or rhonchi. GASTROINTESTINAL: Abdomen soft, non-tender, nondistended. No hepato-splenomegaly , or palpable masses. No guarding. Bowel sounds present. GENITOURINARY: Without palpable bladder distension. Payne catheter in place. MUSCULOSKELETAL: Extremities without clubbing, cyanosis, or edema. No joint tenderness or effusion noted. No calf tenderness. No mottling or clubbing. LYMPHATICS: No palpable cervical or supraclavicular adenopathy. NEUROLOGICAL: Awake and alert,oriented to self and place with some confusion. Motor and sensory grossly within normal limits. Follows commands. Moves all extremities. PSYCHIATRIC: No obvious anxiety/depression. no apparent hallucinations or other psychotic thought process. (Lester Valdivia) Diagnostic Tests Laboratory Laboratory Tests Test 10/13/17 22:38 10/13/17 23:50 10/14/17 09:55 10/15/17 07:45 Total Creatine Kinase 23 U/L (39-308) Stool C. difficile Toxin (PCR) NEGATIVE (NEGATIVE) Stl C. difficile Toxin Epiderm 027 PRESUMPTIVE NEGATIVE White Blood Count 11.4 TH/MM3 (4.0-11.0) 9.6 TH/MM3 (4.0-11.0) Red Blood Count 4.16 MIL/MM3 (4.50-5.90) 4.12 MIL/MM3 (4.50-5.90) Hemoglobin 13.4 GM/DL (13.0-17.0) 13.5 GM/DL (13.0-17.0) Hematocrit 40.3 % (39.0-51.0) 40.2 % (39.0-51.0) Mean Corpuscular Volume 96.9 FL (80.0-100.0) 97.7 FL (80.0-100.0) Mean Corpuscular Hemoglobin 32.1 PG (27.0-34.0) 32.9 PG (27.0-34.0) Mean Corpuscular Hemoglobin Concent 33.1 % (32.0-36.0) 33.7 % (32.0-36.0) Red Cell Distribution Width 13.8 % (11.6-17.2) 13.7 % (11.6-17.2) Platelet Count 484 TH/MM3 (150-450) 472 TH/MM3 (150-450) Mean Platelet Volume 7.9 FL (7.0-11.0) 8.1 FL (7.0-11.0) Neutrophils (%) (Auto) 84.7 % (16.0-70.0) 74.3 % (16.0-70.0) Lymphocytes (%) (Auto) 10.7 % (9.0-44.0) 17.1 % (9.0-44.0) Monocytes (%) (Auto) 3.7 % (0.0-8.0) 7.1 % (0.0-8.0) Eosinophils (%) (Auto) 0.3 % (0.0-4.0) 0.4 % (0.0-4.0) Basophils (%) (Auto) 0.6 % (0.0-2.0) 1.1 % (0.0-2.0) Neutrophils # (Auto) 9.6 TH/MM3 (1.8-7.7) 7.1 TH/MM3 (1.8-7.7) Lymphocytes # (Auto) 1.2 TH/MM3 (1.0-4.8) 1.6 TH/MM3 (1.0-4.8) Monocytes # (Auto) 0.4 TH/MM3 (0-0.9) 0.7 TH/MM3 (0-0.9) Eosinophils # (Auto) 0.0 TH/MM3 (0-0.4) 0.0 TH/MM3 (0-0.4) Basophils # (Auto) 0.1 TH/MM3 (0-0.2) 0.1 TH/MM3 (0-0.2) CBC Comment DIFF FINAL DIFF FINAL Differential Comment Blood Urea Nitrogen 24 MG/DL (7-18) 21 MG/DL (7-18) Creatinine 1.37 MG/DL (0.60-1.30) 1.33 MG/DL (0.60-1.30) Random Glucose 109 MG/DL (74-106) 75 MG/DL (74-106) Total Protein 7.0 GM/DL (6.4-8.2) Albumin 2.5 GM/DL (3.4-5.0) Calcium Level 9.7 MG/DL (8.5-10.1) 10.1 MG/DL (8.5-10.1) Alkaline Phosphatase 71 U/L (45-117) Aspartate Amino Transf (AST/SGOT) 10 U/L (15-37) Alanine Aminotransferase (ALT/SGPT) 26 U/L (12-78) Total Bilirubin 0.5 MG/DL (0.2-1.0) Direct Bilirubin 0.1 MG/DL (0.0-0.2) Sodium Level 142 MEQ/L (136-145) 142 MEQ/L (136-145) Potassium Level 4.0 MEQ/L (3.5-5.1) 4.6 MEQ/L (3.5-5.1) Chloride Level 106 MEQ/L (98-107) 106 MEQ/L (98-107) Carbon Dioxide Level 27.5 MEQ/L (21.0-32.0) 27.3 MEQ/L (21.0-32.0) Anion Gap 9 MEQ/L (5-15) 9 MEQ/L (5-15) Estimat Glomerular Filtration Rate 50 ML/MIN (>89) 51 ML/MIN (>89) Indirect Bilirubin 0.4 MG/DL (0.0-0.8) Vitamin B12 Level 547 PG/ML (193-986) Magnesium Level 2.5 MG/DL (1.5-2.5) Rapid Plasma Reagin NON-REACTIVE (NON-REACTVE) (Lester ValdiviaP) Result Diagram: 10/15/17 0745 10/15/17 0745 Microbiology Microbiology Date/Time Source Procedure Growth Status 10/13/17 23:50 Stool Stool Stool Pus (DAVID) - Final RARE WBC Complete 10/13/17 23:50 Stool Stool Stool Occult Blood (DAVID) - Final HEMOCCULT NEGATIVE Complete 10/13/17 23:50 Stool Stool - Final NO ENTERIC PATHOGENS DETECTED BY PCR... Complete 10/13/17 23:50 Stool Stool Rotavirus Antigen - Final NEGATIVE - ROTAVIRUS ANTIGEN IS ABSEN... Complete (Lester Valdivia) Assessment and Plan Disease Oriented Problem List: (1) UTI (urinary tract infection) (2) Alzheimer's type dementia (3) Bladder mass (4) Abdominal aortic aneurysm without rupture Symptom Scale: (1) Altered mental status 0-10 Scale: Unable to quantify Comment: Patient came in with altered mental status. . (2) Debility Pertinent Non-Medical Issues Psychosocial:Patient was born and raised in [place]. Patient was twice , he is from his first and his second is . He retired from [employer] 32 years ago and served during the [place] war. Patient has 3 adult children, 2 daughters and 1 son. Patient had 3 step children, 2 stepdaughters and once step son who was his alternate HCS. Spiritual:Patient is Y[employer]ism but he stopped attending [employer] 5 years ago after his . Legal: Patient here daily living will but unfortunately both healthcare surrogate and alternate surrogate are . Ethical issues impacting care: None identified at this time . Important Contacts Daughter-Andria Hernandez-[phone]- auto parts counter person for al medical decision making Daughter-Mirella Jade-[phone]- Son-Avni HernandezLaofbkgu-[phone] Step Daughter- Cary Cummins [phone] . Prognosis Mr. Hernandez is a 82 years old with a past medical history of questionable COPD. Patient was Richey Acted and brought to the ER on 10/13/17 after he was found by a neighbor/friend in his home covered in faeces. Clinical course complicated with altered mental status. Given ongoing comorbidities patient remains at high risk for further complications, deterioration and decline. . Code Status: No Code Plan PLAN: Legal decision maker: Patient was seen by psychiatrist and deemed incapacitated to participate in his medical decision making. However patient had completed a living will with a health care care surrogate and alternate HCS who both are . According to [place] statute patient`s 3 adult children will serve as his health care proxys. 2 children Yasmany Vu and Avni Hernandez opted out and patient`s daughter Andria Hernandez will serve as patient`s health care surrogate. Goals: Aggressive short of no code CODE STATUS: No Code- DNR Telephone conversation with patient`s daughter Andria, updated her on patient` s status and that he has been medically discharged. Family looking at available options for patient to be safely discharged home. They are trying to find out what benefits he is eligible for from the [employer] and possibly have a family member move in with patient in his home. Provided patient`s daughter with the local [employer] number to contact them to see if they are able to assist. enterprise architect manager also working with patient`s family. Family interested to have more information regarding hospice services. Explained to Andria that she will receive an informative call from hospice and even if patient may not qualify now , she can always call hospice for a reassessment if patient continues to decline. Patient`s daughter planning to visit with patient on . SYMPTOMS: * Altered mental status:Multifactorial. Patient has been showing dementia like symptoms at home. Patient evaluated by Psychiatry who noted that patient has dementia with no behavioral disturbances. His urine culture was positive for E.Coli. Patient currently receiving antibiotics for UTI. No recommendations at this time. * Debility: Progressive. Patient has been losing weight unintentionally and has had decreased oral intake in the past few months. Recommending physical therapy if family decides that they want aggressive treatment. Palliative care will continue to follow the patient during hospital course as condition evolves, to assist patient/decision-maker with understanding of their medical conditions, weighing benefits/burdens of treatment options, for clarification of goals of treatment. Additionally will assist with any symptoms of palliative concern. (Lester Valdivia) Attestation To help prompt me to consider important information that might be impacting today's encounter and assessment, information from prior notes written by myself or my colleagues may have been "brought forward" into today's note. My signature on this note, however, is an attestation that I personally performed the exam, history, and/or decision-making noted today, and, unless otherwise indicated, the interactions with patient, family, and staff as well as the review of records all occurred today. I also attest that the listed assessment and stated plan reflect my best clinical judgment today based on the combination of historical information, prior notes, and today's exam/ interactions. When time spent is documented, it refers only to time spent today by the signer, or if indicated, combined time spent today by collaborating physician/nurse practitioner. (Lester Valdivia) Collaborating MD Comments Chart reviewed. Case discussed with palliative care INFORMATION SYSTEMS SECURITY MANAGER. Above INFORMATION SYSTEMS SECURITY MANAGER note reviewed and I concur. . (Toy Church MD) Lester Valdivia Oct 16, 2017 13:33 Toy Church MD Oct 24, 2017 16:59
--- NOTE | 2017-10-16 13:54 | HHI.PR ---
Subjective Remarks Follow-up neuropathy. Patient denies any complaints refusing lab work. Discussed with family, nursing staff and palliative care. Healthcare surrogate is Andria who is 1 of his daughters. Out of respect for his wishes, patient will be discharged home with home health care. They do not want patient to be discharged to rehab. They are also requesting hospice. Objective Vitals Vital Signs Date Time Temp Pulse Resp B/P (MAP) Pulse Ox O2 Delivery O2 Flow Rate FiO2 10/16/17 12:04 100 10/16/17 08:00 97.7 67 18 126/60 (82) 99 10/16/17 08:00 97.4 66 18 144/60 (88) 100 10/16/17 04:12 97.8 72 16 127/57 (80) 95 10/16/17 00:43 97.7 80 18 164/72 (102) 98 10/15/17 22:23 98.0 80 16 156/68 (97) 98 10/15/17 15:57 97.1 80 19 126/59 (81) 97 I/O 10/15/17 10/15/17 10/15/17 10/16/17 10/16/17 10/16/17 07:00 15:00 23:00 07:00 15:00 23:00 Intake Total 580 ml Balance 580 ml Intake Oral 580 ml # Voids 1 3 4 # Bowel Movements 1 Result Diagram: 10/15/17 0745 10/15/17 0745 Imaging Last Impressions Chest X-Ray 10/13/17 1214 Signed Impressions: Service Date/Time: Friday, October 13, 2017 12:48 - CONCLUSION: 1. Questionable increased density in the right upper lung area. Recommend a 2 view PA and lateral chest x-ray for further evaluation. Robin Young MD Head CT 10/13/17 0000 Signed Impressions: Service Date/Time: Friday, October 13, 2017 13:53 - CONCLUSION: 1. No acute intra-animality. 2. Chronic appearing left frontal sinus and mild right maxillary mucosal sinus disease. 3. Small metallic fragments in the facial soft tissues and nasal septum. Boris Roque MD Chest CT 10/13/17 0000 Signed Impressions: Service Date/Time: Friday, October 13, 2017 20:23 - CONCLUSION: 1. No acute pulmonary abnormality is identified. There is mild centrilobular emphysema with mild biapical scar. No concerning pulmonary nodule is seen. 2. Severe atherosclerotic disease. Bryan Hobson MD Abdomen/Pelvis CT 10/13/17 0000 Signed Impressions: Service Date/Time: Friday, October 13, 2017 13:57 - CONCLUSION: 1. Enhancing posterior bladder mass measuring 2.5 x 2.7 cm consistent with bladder carcinoma. 2. Adjacent densely calcified bladder calculus measuring 1.5 x 1.3 cm. 3. Chronic appearing mild left hydronephrosis with chronic scarring of the left kidney particularly near the inferior pole. 4. Tubular cystic density structure measuring up to 3 cm adjacent the cecum likely reflecting a dilated appendix. No significant stranding or inflammatory change. 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 5. Infrarenal aortic aneurysm measuring up to 2.9 cm containing small amount of anterior mural thrombus. Boris Roque MD Objective Remarks GENERAL: Laying in bed. Thin patient. HEAD: Atraumatic. Normocephalic. EYES: some dry secretions noted on the right eyelids, right w no injection. No secretion noted on the left. ENT: Airway patent. Mucous membranes do appear dry NECK: Trachea midline CARDIOVASCULAR: Regular rate and rhythm without murmurs RESPIRATORY: Clear to auscultation with normal respiratory effort. Decreased breath sounds symmetrically GASTROINTESTINAL: Abdomen soft, normal bowel sounds MUSCULOSKELETAL: Extremities without edema. moves around in bed, NEUROLOGICAL: Moves all 4 extremities, flat affect. answers w yes or no Procedures none A/P Problem List: (1) UTI (urinary tract infection) ICD Code: N39.0 - Urinary tract infection, site not specified Status: Acute (2) Bladder mass ICD Code: N32.89 - Other specified disorders of bladder Status: Acute Assessment and Plan This is an 82-year-old male with no known comorbidities but very poor historian , presenting as a Richey act, found to have possible UTI and bladder mass and aortic aneurysm Metabolic encephalopathy from UTI, monitor. History of dementia. E. coli urinary tract infection with sepsis-switch to p.o. ciprofloxacin Bladder mass- CT scan of the abdomen/pelvis reviewed, bladder mass 2.5 x 2.7 cm , suspicious for bladder cancer, patient is a retired colonel, there is also evidence of mild left hydronephrosis, urology has recommended Payne catheter insertion if postvoid volume over 200 ml. Has 103 ml. Op f/u for cystoscopy. Infrarenal aortic aneurysm- 2.9 cm, with small amount of anterior mural thrombus, vascular surgery recommended outpatient follow-up. Will need repair if aneurysm which is 5.5 cm. BP control Hypertension-on Norvasc, clonidine as needed Acute versus chronic kidney disease- ? , No previous labs to compare with, continue IVF. Urinalysis only has trace proteinuria. Follow BMP. Improving Diarrhea- C. difficile neg, ova and parasites pending. DVT prophylaxis: Heparin Patient was admitted under Richey act, consulted psychiatry for further recommendations. Recommended to continue Richey until the patient is placed. Discussed with family, nursing staff and palliative care. Healthcare surrogate is Andria who is 1 of his daughters. Out of respect for his wishes, patient will be discharged home with home health care. They do not want patient to be discharged to rehab. They are also requesting hospice. Discharge Planning C vs Hospice refusing rehab Problem Qualifiers (1) UTI (urinary tract infection): Qualified Codes: N30.00 - Acute cystitis without hematuria Sudeep Moses MD Oct 16, 2017 13:54
[2017-10-16] MEDS ORDERED: PERI PO (13:58)
[2017-10-16] MEDS ORDERED: AMLO5 PO (13:58)
[2017-10-16] MEDS ORDERED: CIPR250T52 PO (13:58)
[2017-10-17] MEDS: HEPARIN SODIUM - SQ 10,000 UNITS/ML VIAL SQ SCH (04:00)
[2017-10-17] MEDS: SODIUM CHLORIDE 0.9% FLUSH 10 ML FLUSH IV FLUSH SCH ×2 (09:00→21:00)
[2017-10-17] MEDS: CIPROFLOXACIN 250 MG TAB PO SCH ×2 (09:12→21:00)
[2017-10-17] MEDS: DOCUSATE SODIUM 50 MG/SENNA 8.6 MG TAB PO SCH ×2 (09:12→21:00)
[2017-10-17] MEDS: amLODIPine BESYLATE 5 MG TAB PO SCH (09:12)
[2017-10-17] MEDS: SODIUM CHLOR 0.9% 1000 ML INJ 1,000 ML IV SCH ×2 (09:19→19:19)
--- NOTE | 2017-10-17 11:04 | HHI.PR ---
Subjective Remarks Follow-up encephalopathy. Patient has no complaints remains confused getting out of bed without assistance no falls. Patient having black loose stool denies abdominal pain, dizziness, chest pain or shortness of breath. Discussed with RN Objective Vitals Vital Signs Date Time Temp Pulse Resp B/P (MAP) Pulse Ox O2 Delivery O2 Flow Rate FiO2 10/16/17 12:04 100 I/O 10/16/17 10/16/17 10/16/17 10/17/17 10/17/17 10/17/17 07:00 15:00 23:00 07:00 15:00 23:00 # Voids 4 Result Diagram: 10/15/17 0745 10/15/17 0745 Imaging Last Impressions Chest X-Ray 10/13/17 1214 Signed Impressions: Service Date/Time: Friday, October 13, 2017 12:48 - CONCLUSION: 1. Questionable increased density in the right upper lung area. Recommend a 2 view PA and lateral chest x-ray for further evaluation. Robin Young MD Head CT 10/13/17 0000 Signed Impressions: Service Date/Time: Friday, October 13, 2017 13:53 - CONCLUSION: 1. No acute intra-animality. 2. Chronic appearing left frontal sinus and mild right maxillary mucosal sinus disease. 3. Small metallic fragments in the facial soft tissues and nasal septum. Boris Roque MD Chest CT 10/13/17 0000 Signed Impressions: Service Date/Time: Friday, October 13, 2017 20:23 - CONCLUSION: 1. No acute pulmonary abnormality is identified. There is mild centrilobular emphysema with mild biapical scar. No concerning pulmonary nodule is seen. 2. Severe atherosclerotic disease. Bryan Hobson MD Abdomen/Pelvis CT 10/13/17 0000 Signed Impressions: Service Date/Time: Friday, October 13, 2017 13:57 - CONCLUSION: 1. Enhancing posterior bladder mass measuring 2.5 x 2.7 cm consistent with bladder carcinoma. 2. Adjacent densely calcified bladder calculus measuring 1.5 x 1.3 cm. 3. Chronic appearing mild left hydronephrosis with chronic scarring of the left kidney particularly near the inferior pole. 4. Tubular cystic density structure measuring up to 3 cm adjacent the cecum likely reflecting a dilated appendix. No significant stranding or inflammatory change. 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 5. Infrarenal aortic aneurysm measuring up to 2.9 cm containing small amount of anterior mural thrombus. Boris Roque MD Objective Remarks GENERAL: Well-developed asthenic patient in no distress HEAD: Atraumatic. Normocephalic. EYES: some dry secretions noted on the right eyelids, right w no injection. No secretion noted on the left. ENT: Airway patent. Mucous membranes do appear dry NECK: Trachea midline CARDIOVASCULAR: Regular rate and rhythm without murmurs RESPIRATORY: Clear to auscultation with normal respiratory effort. Decreased breath sounds symmetrically GASTROINTESTINAL: Abdomen soft, normal bowel sounds MUSCULOSKELETAL: Extremities without edema. moves around in bed, NEUROLOGICAL: Moves all 4 extremities, flat affect. answers w yes or no Procedures none A/P Problem List: (1) UTI (urinary tract infection) ICD Code: N39.0 - Urinary tract infection, site not specified Status: Acute (2) Bladder mass ICD Code: N32.89 - Other specified disorders of bladder Status: Acute Assessment and Plan This is an 82-year-old male with no known comorbidities but very poor historian , presenting as a Richey act, found to have possible UTI and bladder mass and aortic aneurysm Metabolic encephalopathy from UTI with history of dementia. Stable E. coli urinary tract infection with sepsis-switch to p.o. ciprofloxacin to provide 24 Bladder mass- CT scan of the abdomen/pelvis reviewed, bladder mass 2.5 x 2.7 cm , suspicious for bladder cancer, patient is a retired colonel, there is also evidence of mild left hydronephrosis, urology has recommended Payne catheter insertion if postvoid volume over 200 ml. Has 103 ml. Op f/u for cystoscopy. Infrarenal aortic aneurysm- 2.9 cm, with small amount of anterior mural thrombus, vascular surgery recommended outpatient follow-up. Will need repair if aneurysm which is 5.5 cm. BP control Hypertension-on Norvasc, clonidine as needed Acute versus chronic kidney disease- ? , No previous labs to compare with, continue IVF. Urinalysis only has trace proteinuria. Follow BMP, patient was been refusing. Improving Diarrhea- C. difficile neg, guaiac 1 negative. Stools are dark. Will do more guaiac and repeat lab work today if patient allows DVT prophylaxis: Heparin will be on hold unless act as negative Patient was admitted under Richey act, consulted psychiatry for further recommendations. Recommended to continue Richey until the patient is placed. Discussed with family, nursing staff and palliative care. Healthcare surrogate is Andria who is 1 of his daughters. Out of respect for his wishes, patient will be discharged home with home health care. They do not want patient to be discharged to rehab. They are also requesting hospice which has been consulted. Discharge Planning C vs Hospice refusing rehab Problem Qualifiers (1) UTI (urinary tract infection): Qualified Codes: N30.00 - Acute cystitis without hematuria Sudeep Moses MD Oct 17, 2017 11:04
[2017-10-17 12:00] VITALS: BP 131/66; PULSE 72; RESP 18; TEMP 97.7
[2017-10-18] MEDS: SODIUM CHLOR 0.9% 1000 ML INJ 1,000 ML IV SCH ×2 (05:19→15:19)
[2017-10-18] MEDS: CIPROFLOXACIN 250 MG TAB PO SCH ×2 (09:00→16:06)
[2017-10-18] MEDS: amLODIPine BESYLATE 5 MG TAB PO SCH ×2 (09:00→16:05)
[2017-10-18] MEDS: SODIUM CHLORIDE 0.9% FLUSH 10 ML FLUSH IV FLUSH SCH ×2 (09:00→21:00)
[2017-10-18] MEDS: DOCUSATE SODIUM 50 MG/SENNA 8.6 MG TAB PO SCH ×2 (09:00→21:00)
[2017-10-18 09:07] VITALS: BP 121/78; PULSE 75; RESP 18; TEMP 98.9; O2SAT 98
--- NOTE | 2017-10-18 10:08 | HHI.PR ---
Subjective Remarks Follow-up encephalopathy. Patient is awake and alert offering no complaints. Seen with 2 daughters. Discussed with nursing, continues to refuse blood work. Also refused to have his stools checked. Objective Vitals Vital Signs Date Time Temp Pulse Resp B/P (MAP) Pulse Ox O2 Delivery O2 Flow Rate FiO2 10/18/17 09:07 98.9 75 18 121/78 (92) 98 10/17/17 12:00 97.7 72 18 131/66 (87) I/O 10/17/17 10/17/17 10/17/17 10/18/17 10/18/17 10/18/17 07:00 15:00 23:00 07:00 15:00 23:00 Intake Total 240 ml Balance 240 ml Intake Oral 240 ml # Voids 3 Result Diagram: 10/15/17 0745 10/15/17 0745 Objective Remarks GENERAL: Well-developed asthenic patient in no distress HEAD: Atraumatic. Normocephalic. CARDIOVASCULAR: Regular rate and rhythm without murmurs RESPIRATORY: Clear to auscultation with normal respiratory effort. Decreased breath sounds symmetrically GASTROINTESTINAL: Abdomen soft, normal bowel sounds MUSCULOSKELETAL: Extremities without edema. moves around in bed, NEUROLOGICAL: Moves all 4 extremities, flat affect. answers w yes or no Procedures none A/P Problem List: (1) UTI (urinary tract infection) ICD Code: N39.0 - Urinary tract infection, site not specified Status: Acute (2) Bladder mass ICD Code: N32.89 - Other specified disorders of bladder Status: Acute Assessment and Plan This is an 82-year-old male with no known comorbidities but very poor historian , presenting as a Richey act, found to have possible UTI and bladder mass and aortic aneurysm Metabolic encephalopathy from UTI with history of dementia. Stable E. coli urinary tract infection with sepsis-switch to p.o. ciprofloxacin until October 20 Bladder mass- CT scan of the abdomen/pelvis reviewed, bladder mass 2.5 x 2.7 cm , suspicious for bladder cancer, patient is a retired colonel, there is also evidence of mild left hydronephrosis, urology has recommended Payne catheter insertion if postvoid volume over 200 ml. Has 103 ml. Op f/u for cystoscopy. Infrarenal aortic aneurysm- 2.9 cm, with small amount of anterior mural thrombus, vascular surgery recommended outpatient follow-up. Will need repair if aneurysm which is 5.5 cm. BP control Hypertension-on Norvasc, clonidine as needed Acute versus chronic kidney disease- ? , No previous labs to compare with, continue IVF. Urinalysis only has trace proteinuria. Follow BMP, patient was been refusing. Improving Diarrhea- C. difficile neg, guaiac 1 negative. Stools are dark. Will do more guaiac and repeat lab work today if patient allows DVT prophylaxis: Heparin will be on hold unless act as negative Patient was admitted under Richey act, consulted psychiatry for further recommendations. Recommended to continue Richey until the patient is placed. Discussed with family, nursing staff and palliative care. Healthcare surrogate is Andria who is his daughter. Out of respect for his wishes, patient will be discharged home with home health care. They do not want patient to be discharged to rehab. They are also requesting hospice but patient is not a candidate at this time Discharge Planning [facility] when arranged refusing rehab Problem Qualifiers (1) UTI (urinary tract infection): Qualified Codes: N30.00 - Acute cystitis without hematuria Sudeep Moses MD Oct 18, 2017 10:08
--- NOTE | 2017-10-18 12:02 | HHI.HCPN ---
Reason for visit a. To assist with evaluation and management of symptoms including: altered mental status, debility b. To assist medical decision maker(s) with: better understanding of current medical conditions; weighing benefits/burdens of medical treatment options; making medical treatment decisions. (Lester Valdivia) Subjective/Interval History Follow-up visit to meet with patient's daughter Andria as well as having patient's [facility] DNR signed. Patient sitting up in his recliner chair, seen and examined in the presence of his neighbor and his two daughters Andria and Mirella. Patient is awake, alert and oriented to self only, and is in a happy mood. He was able to identify Andria as his daughter but was not able to identify his other daughter Mirella. He referred to his neighbor VALERIA as his "anderson". He was not able to state his name. Patient seldomly speaks, he is able to follow simple commands. Patient startles easily as you approach him, but calms down when you explain to him what you are doing. Patient`s daughter Andria Hernandez signed [facility] DNR as patient`s health care proxy. Provided her with a copy. Family arranging to have home health care to assist with patient when he is discharged from the hospital. One of the patient`s granddaughter has also arrived in town and is moving in to live with patient. Andria stated that they are also hiring private caregivers to make sure patient has someone at home with him 19/03. Patient`s daughter appreciative of conversations with palliative care regarding their father`s medical status. Case discussed with employment evaluator/case manager Zuleyma. Family/friend interactions Meeting with patient`s 2 daughters at bedside. . (Lester Valdivia) Advance Directives Living Will: Copy in medical record Health Care Surrogate: Copy in medical record (Lester Valdivia) Advance Directive Specifics Date completed: 08/02/2004 . Health Care Surrogate(s): Spouse- Nikki Hernandez -healthcare surrogate who 5 years ago Sienna Benson was the alternate healthcare surrogate - on 2017 Health care Proxys DaughterMeagan Hernandez-[phone]- parts person for al medical decision making Daughter-Mirella Defyl-[phone]- Son-Avni HernandezUkidbvst-[phone] Telephone conversation with Mirella Maggiemickey and bedside discussion with Avni Hernandez who both deferred all medical decision making to their sister Mary Ayers. They both agreed that they will opt out and Andria Hernandez will act as patient`s health care proxy. (Lester Valdivia) Objective Vital Signs Date Time Temp Pulse Resp B/P (MAP) Pulse Ox O2 Delivery O2 Flow Rate FiO2 10/18/17 09:07 98.9 75 18 121/78 (92) 98 10/17/17 12:00 97.7 72 18 131/66 (87) Physical Exam CONSTITUTIONAL/GENERAL: This is an adequately nourished patient, in no apparent distress. TUBES/LINES/DRAINS: PIV SKIN: No jaundice, rashes, or lesions. Ecchymoses on upper extremities. No wounds seen anteriorly. Skin temperature appropriate. Not diaphoretic. HEAD: Atraumatic. Normocephalic. EYES: Pupils equal and round and reactive. Extraocular motions intact. No scleral icterus. No injection or drainage. Fundi not examined. ENT: Hearing grossly normal. Nose without bleeding or purulent drainage. Throat without visible erythema, exudates, masses, or lesions. NECK: Trachea midline. Supple, nontender. No palpable thyroid enlargement or nodularity. CARDIOVASCULAR: Regular rate and rhythm without murmurs, gallops, or rubs. No JVD. Peripheral pulses symmetric. RESPIRATORY/CHEST: Symmetric, unlabored respirations. Clear to auscultation. Breath sounds equal bilaterally. No wheezes, rales, or rhonchi. GASTROINTESTINAL: Abdomen soft, non-tender, nondistended. No hepato-splenomegaly , or palpable masses. No guarding. Bowel sounds present. GENITOURINARY: Without palpable bladder distension. Payne catheter in place. MUSCULOSKELETAL: Extremities without clubbing, cyanosis, or edema. No joint tenderness or effusion noted. No calf tenderness. No mottling or clubbing. NEUROLOGICAL: Awake and alert,oriented to self with some confusion. Motor and sensory grossly within normal limits. Follows commands. Moves all extremities. PSYCHIATRIC: No obvious anxiety/depression. no apparent hallucinations or other psychotic thought process. (Lester Valdivia) Diagnostic Tests Laboratory (Lester Valdivia) Result Diagram: 10/15/17 0745 10/15/17 9384 Assessment and Plan Disease Oriented Problem List: (1) UTI (urinary tract infection) (2) Alzheimer's type dementia (3) Bladder mass (4) Abdominal aortic aneurysm without rupture Symptom Scale: (1) Altered mental status 0-10 Scale: Unable to quantify Comment: Patient came in with altered mental status. . (2) Debility Pertinent Non-Medical Issues Psychosocial:Patient was born and raised in [place]. Patient was twice , he is from his first and his second is . He retired from [employer] 32 years ago and served during the [place] war. Patient has 3 adult children, 2 daughters and 1 son. Patient had 3 step children, 2 stepdaughters and once step son who was his alternate HCS. Spiritual:Patient is Sabianist but he stopped attending rastafarian 5 years ago after his . Legal: Patient here daily living will but unfortunately both healthcare surrogate and alternate surrogate are . Ethical issues impacting care: None identified at this time . Important Contacts Daughter-Andria Hernandez-[phone]- parts person for al medical decision making Daughter-Mirella Jade-[phone]- Son-Avni HernandezXygcuyhh-[phone] Step Daughter- Cary Cummins [phone] . Prognosis Mr. Hernandez is a 82 years old with a past medical history of questionable COPD. Patient was Richey Acted and brought to the ER on 10/13/17 after he was found by a neighbor/friend in his home covered in faeces. Clinical course complicated with altered mental status. Given ongoing comorbidities patient remains at high risk for further complications, deterioration and decline. . Code Status: No Code Plan PLAN: Legal decision maker: Patient was seen by psychiatrist and deemed incapacitated to participate in his medical decision making. However patient had completed a living will with a health care care surrogate and alternate HCS who both are . According to [place] statute patient`s 3 adult children will serve as his health care proxys. 2 children Yasmany Vu and Avni Hernandez opted out and patient`s daughter Andria Hernandez will serve as patient`s health care surrogate. Goals: Aggressive short of no code CODE STATUS: No Code- DNR- Community DNR signed today by patient`s daughter Andria Hernandez. Patient`s daughter Andria Hernandez signed [place] DNR as patient`s health care proxy. Provided her with a copy. Family arranging to have home health care to assist with patient when he is discharged from the hospital. One of the patient`s granddaughter has also arrived in town and is moving in to live with patient. Andria stated that they are also hiring private caregivers to make sure patient has someone at home with him 19/03. SYMPTOMS: * Altered mental status:Multifactorial. Patient has been showing dementia like symptoms at home. Patient evaluated by Psychiatry who noted that patient has dementia with no behavioral disturbances. His urine culture was positive for E.Coli. Patient currently receiving antibiotics for UTI. No recommendations at this time. * Debility: Progressive. Patient has been losing weight unintentionally and has had decreased oral intake in the past few months. Patient to be discharged home with home health care. Palliative care will continue to follow the patient during hospital course as condition evolves, to assist patient/decision-maker with understanding of their medical conditions, weighing benefits/burdens of treatment options, for clarification of goals of treatment. Additionally will assist with any symptoms of palliative concern. (Lester Valdivia) Attestation To help prompt me to consider important information that might be impacting today's encounter and assessment, information from prior notes written by myself or my colleagues may have been "brought forward" into today's note. My signature on this note, however, is an attestation that I personally performed the exam, history, and/or decision-making noted today, and, unless otherwise indicated, the interactions with patient, family, and staff as well as the review of records all occurred today. I also attest that the listed assessment and stated plan reflect my best clinical judgment today based on the combination of historical information, prior notes, and today's exam/ interactions. When time spent is documented, it refers only to time spent today by the signer, or if indicated, combined time spent today by collaborating physician/nurse practitioner. (Lester Valdivia) Collaborating MD Comments Chart reviewed. Case discussed with palliative care CHIEF METER READER. Above CHIEF METER READER note reviewed and I concur. . (Toy Church MD) Lester Valdivia Oct 18, 2017 12:02 Toy Church MD Oct 24, 2017 17:17
[2017-10-19] MEDS: SODIUM CHLOR 0.9% 1000 ML INJ 1,000 ML IV SCH (01:19)
[2017-10-19] MEDS: SODIUM CHLORIDE 0.9% FLUSH 10 ML FLUSH IV FLUSH SCH (09:00)
[2017-10-19] MEDS: DOCUSATE SODIUM 50 MG/SENNA 8.6 MG TAB PO SCH (09:00)
--- NOTE | 2017-10-19 09:49 | HHI.PR ---
Objective Vitals I/O 10/18/17 10/18/17 10/18/17 10/19/17 10/19/17 10/19/17 07:00 15:00 23:00 07:00 15:00 23:00 Intake Total 480 ml Balance 480 ml Intake Oral 480 ml # Voids 3 1 Result Diagram: 10/15/17 0745 10/15/17 0745 Objective Remarks GENERAL: Well-developed asthenic patient in no distress HEAD: Atraumatic. Normocephalic. CARDIOVASCULAR: Regular rate and rhythm without murmurs RESPIRATORY: Clear to auscultation with normal respiratory effort. Decreased breath sounds symmetrically GASTROINTESTINAL: Abdomen soft, normal bowel sounds MUSCULOSKELETAL: Extremities without edema. moves around in bed, NEUROLOGICAL: Moves all 4 extremities, flat affect. answers w yes or no Procedures none A/P Problem List: (1) UTI (urinary tract infection) ICD Code: N39.0 - Urinary tract infection, site not specified Status: Acute (2) Bladder mass ICD Code: N32.89 - Other specified disorders of bladder Status: Acute Assessment and Plan This is an 82-year-old male with no known comorbidities but very poor historian , presenting as a Richey act, found to have possible UTI and bladder mass and aortic aneurysm Metabolic encephalopathy from UTI with history of dementia. Stable E. coli urinary tract infection with sepsis-switch to p.o. ciprofloxacin until October 20 Bladder mass- CT scan of the abdomen/pelvis reviewed, bladder mass 2.5 x 2.7 cm , suspicious for bladder cancer, patient is a retired colonel, there is also evidence of mild left hydronephrosis, urology has recommended Payne catheter insertion if postvoid volume over 200 ml. Has 103 ml. Op f/u for cystoscopy. Infrarenal aortic aneurysm- 2.9 cm, with small amount of anterior mural thrombus, vascular surgery recommended outpatient follow-up. Will need repair if aneurysm which is 5.5 cm. BP control Hypertension-on Norvasc, clonidine as needed Acute versus chronic kidney disease- ? , No previous labs to compare with, continue IVF. Urinalysis only has trace proteinuria. Follow BMP, patient was been refusing. Improving Diarrhea- C. difficile neg, guaiac 1 negative. Stools are dark. Will do more guaiac and repeat lab work today if patient allows DVT prophylaxis: Heparin will be on hold unless act as negative Patient was admitted under Richey act, consulted psychiatry for further recommendations. Recommended to continue Richey until the patient is placed. Discussed with family, nursing staff and palliative care. Healthcare surrogate is Andria who is his daughter. Out of respect for his wishes, patient will be discharged home with home health care. They do not want patient to be discharged to rehab. They are also requesting hospice but patient is not a candidate at this time Discharge Planning [facility] when arranged refusing rehab Problem Qualifiers (1) UTI (urinary tract infection): Qualified Codes: N30.00 - Acute cystitis without hematuria Sudeep Moses MD Oct 19, 2017 09:49
[2017-10-19] MEDS ORDERED: SERO25TA PO (09:53)
[2017-10-19] MEDS ORDERED: CIPR250T52 PO (09:53)
--- NOTE | 2017-10-19 09:54 | HHI.DS ---
Discharge Summary Admission Date Oct 13, 2017 at 15:23 Discharge Date: Oct 19, 2017 Admitting Diagnosis AMS, bladder mass, weakness, UTI (1) UTI (urinary tract infection) ICD Code: N39.0 - Urinary tract infection, site not specified Diagnosis: Principal Status: Acute (2) Bladder mass ICD Code: N32.89 - Other specified disorders of bladder Diagnosis: Principal Status: Acute Procedures none Brief History - From Admission This is an 82-year-old male with no known comorbidities, possible COPD, was Richey acted after patient's neighbor/friend called the police department because patient was found to be covered in feces. Per patient's friend, the patient has been declining in the last few weeks, has been having loose stools, coughing, nonproductive and has been more forgetful. He does not know of any medical problems, he is trying to contact the patient's daughter who is incommunicado. Closest family is in [place]. Patient denies any fever, chills, chest pain, shortness of breath, urinary symptoms, abdominal pain or diarrhea. Very poor historian. CBC/BMP: 10/15/17 0745 10/15/17 0745 Imaging Last Impressions Chest X-Ray 10/13/17 1214 Signed Impressions: Service Date/Time: Friday, October 13, 2017 12:48 - CONCLUSION: 1. Questionable increased density in the right upper lung area. Recommend a 2 view PA and lateral chest x-ray for further evaluation. Robin Young MD Head CT 10/13/17 0000 Signed Impressions: Service Date/Time: Friday, October 13, 2017 13:53 - CONCLUSION: 1. No acute intra-animality. 2. Chronic appearing left frontal sinus and mild right maxillary mucosal sinus disease. 3. Small metallic fragments in the facial soft tissues and nasal septum. Boris Roque MD Chest CT 10/13/17 0000 Signed Impressions: Service Date/Time: Friday, October 13, 2017 20:23 - CONCLUSION: 1. No acute pulmonary abnormality is identified. There is mild centrilobular emphysema with mild biapical scar. No concerning pulmonary nodule is seen. 2. Severe atherosclerotic disease. Bryan Hobson MD Abdomen/Pelvis CT 10/13/17 0000 Signed Impressions: Service Date/Time: Friday, October 13, 2017 13:57 - CONCLUSION: 1. Enhancing posterior bladder mass measuring 2.5 x 2.7 cm consistent with bladder carcinoma. 2. Adjacent densely calcified bladder calculus measuring 1.5 x 1.3 cm. 3. Chronic appearing mild left hydronephrosis with chronic scarring of the left kidney particularly near the inferior pole. 4. Tubular cystic density structure measuring up to 3 cm adjacent the cecum likely reflecting a dilated appendix. No significant stranding or inflammatory change. 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 5. Infrarenal aortic aneurysm measuring up to 2.9 cm containing small amount of anterior mural thrombus. Boris Roque MD PE at Discharge GENERAL: Well-developed asthenic patient in no distress HEAD: Atraumatic. Normocephalic. CARDIOVASCULAR: Regular rate and rhythm without murmurs RESPIRATORY: Clear to auscultation with normal respiratory effort. Decreased breath sounds symmetrically GASTROINTESTINAL: Abdomen soft, normal bowel sounds MUSCULOSKELETAL: Extremities without edema. moves around in bed, NEUROLOGICAL: Moves all 4 extremities, flat affect. answers w yes or no Hospital Course This is an 82-year-old male with no known comorbidities but very poor historian , presenting as a Richey act, found to have possible UTI and bladder mass and aortic aneurysm Metabolic encephalopathy from UTI with history of dementia. Stable E. coli urinary tract infection with sepsis-switch to p.o. ciprofloxacin until October 20 Bladder mass- CT scan of the abdomen/pelvis reviewed, bladder mass 2.5 x 2.7 cm , suspicious for bladder cancer, patient is a retired colonel, there is also evidence of mild left hydronephrosis, urology has recommended Payne catheter insertion if postvoid volume over 200 ml. Has 103 ml. Op f/u for cystoscopy. Infrarenal aortic aneurysm- 2.9 cm, with small amount of anterior mural thrombus, vascular surgery recommended outpatient follow-up. Will need repair if aneurysm which is 5.5 cm. BP control Hypertension-on Norvasc, clonidine as needed Acute versus chronic kidney disease- ? , No previous labs to compare with, continue IVF. Urinalysis only has trace proteinuria. Follow BMP, patient was been refusing. Improving Diarrhea- C. difficile neg, guaiac 1 negative. Stools are dark. Will do more guaiac and repeat lab work today if patient allows DVT prophylaxis: Heparin will be on hold unless act as negative Patient was admitted under Richey act, consulted psychiatry for further recommendations. Recommended to continue Richey until the patient is placed. Discussed with family, nursing staff and palliative care. Healthcare surrogate is Andria who is his daughter. Out of respect for his wishes, patient will be discharged home with home health care. They do not want patient to be discharged to rehab. They are also requesting hospice but patient is not a candidate at this time Pt Condition on Discharge: Stable Discharge Disposition: Disch w/ Home Health Serv Discharge Time: > 30 minutes Discharge Instructions DIET: Follow Instructions for: Heart Healthy Diet Speech Therapy-Diet Recommends: Other Activities you can perform: Regular-No Restrictions Activities to Avoid: Driving Follow up Referrals: Appointment for Follow Up PCP Follow-up - 1 Week PCP Follow-up Urology - 1 Week New Medications: Quetiapine (Seroquel) 25 Mg Tab 25 MG PO HS for agitation, #30 TAB 0 Refills Amlodipine (Norvasc) 5 Mg Tab 5 MG PO DAILY for Blood Pressure Management, #30 TAB Ciprofloxacin (Cipro) 250 Mg Tab 250 MG PO Q12HR for Infection, #2 TAB stop date 10/20/17 Sennosides-Docusate Sodium (Gnp Senna Plus 8.6-50 mg) 8.6 Mg-50 Mg Tab 1 TAB PO BID for Prevent Constipation, #60 TAB Sudeep Moses MD Oct 19, 2017 09:54
[2017-10-19] MEDS ORDERED: QUEtiapine FUMARATE 25 MG TAB PO ONE (10:00)
[2017-10-19] MEDS: CIPROFLOXACIN 250 MG TAB PO SCH (10:08)
[2017-10-19] MEDS: amLODIPine BESYLATE 5 MG TAB PO SCH (10:09)
[2017-10-19] MEDS ORDERED: QUEtiapine FUMARATE 25 MG TAB PO SCH (21:00)
== END 2017-10-19 10:41 | disposition home health service (06) | DRG 871 ==
LOC: NEPC 11:49 → NEDA 15:23 → N05A 17:05
PROVIDERS: ADMIT Internal Medicine; ATTEND Internal Medicine
DX: A41.51 Sepsis due to Escherichia coli [E. coli] (principal); G93.41 Metabolic encephalopathy; N13.30 Unspecified hydronephrosis; I45.2 Bifascicular block; J43.2 Centrilobular emphysema; N30.00 Acute cystitis without hematuria; G30.9 Alzheimer's disease, unspecified; F02.80 Dementia in other diseases classified elsewhere, unspecified severity, without behavioral disturbance, psychotic disturbance, mood disturbance, and anxiety; R63.0 Anorexia; I71.4 Abdominal aortic aneurysm, without rupture; N32.9 Bladder disorder, unspecified; F17.290 Nicotine dependence, other tobacco product, uncomplicated; I10 Essential (primary) hypertension; N21.0 Calculus in bladder; N40.0 Benign prostatic hyperplasia without lower urinary tract symptoms; H35.30 Unspecified macular degeneration; K40.90 Unilateral inguinal hernia, without obstruction or gangrene, not specified as recurrent; Z51.5 Encounter for palliative care; Z63.8 Other specified problems related to primary support group; Z66 Do not resuscitate
CPT/HCPCS: 70450; 71045; 71250; 74177; 76937; 80048; 80053; 80076; 80307; 81001; 82140; 82272; 82550; 82607; 83605; 83735; 84443; 84484; 85025; 85610; 85730; 86592; 87077; 87086; 87186; 87205; 87425; 87493; 87506; 93005; 96361; 96365; J0696; J1644; J2060; J7030; J7040; P9612; Q9967